=== PATIENT | male | born 1965 | race Caucasian/White ===

== ENCOUNTER 2018-01-31 19:06 | Inpatient (IN) ==
[2018-01-31] MEDS ORDERED: Aspirin 81 MG TAB.CHEW PO ONE (19:28)
--- NOTE | 2018-01-31 19:32 | Emergency Department Note ---
Disposition Clinical Impression: Shortness of breath Cellulitis Qualifiers: Site of cellulitis: extremity Site of cellulitis of extremity: lower extremity Laterality: unspecified laterality Qualified Code(s): L03.119 - Cellulitis of unspecified part of limb Chest pain Qualifiers: Chest pain type: unspecified Qualified Code(s): R07.9 - Chest pain, unspecified Disposition: Admitted As Inpatient Condition: Good Referrals: NONE,PCP [Primary Care Provider] - Forms: ED Satisfaction Letter Time of Disposition: 21:21 General Adult HPI - General Chief complaint: ED Skin/Abscess/Foreign Body Stated complaint: CP/HILDA/Cellulitis Time Seen by Provider: 01/31/18 19:16 Source: patient Mode of arrival: ambulatory Limitations: no limitations Nursing Notes Reviewed: Yes Vital Signs Reviewed: Yes - History of Present Illness HPI Narrative: Patient is a 52-year-old male that presents the emergency department with chest pain, shortness of breath and cellulitis to the lower extremities. Patient states that this has been ongoing for the past week or so. States that he was seen here in the emergency department approximately one week ago and given Keflex and Bactrim which she has been taking but this has not provided any improvement to his cellulitis. He also states that he has been having chest pain that is across his whole chest and associated shortness of breath and some lightheadedness. Patient denies any nausea, vomiting or diaphoresis. Patient states that he has had a history of cellulitis in the past specifically in his shoulder. He is unsure whether or not he has had MRSA. Patient states that both legs are red, painful and swollen. He states that this seems like they have been getting worse. Patient denies any history of DVT. Pain Scale: 8 - Related Data Home Medications Medication Instructions Recorded Confirmed Dextroamphetamine/Amphetamine 30 mg PO DAILY 01/31/18 01/31/18 [Dextroamp-Amphetamin 30 mg Tab] Previous Rx's Medication Instructions Recorded Sulfamethoxazole/Trimeth DS 1 each PO BID 7 Days tablet 08/06/15 [Bactrim DS] Cephalexin [Keflex] 500 mg PO QID #40 capsule 01/25/18 Allergies Allergy/AdvReac Type Severity Reaction Status Date / Time codeine Allergy Itching Verified 01/31/18 21:30 All systems ED: reviewed and negative except as stated. Constitutional: Denies: fever, chills Cardiovascular: Reports: chest pain Respiratory: Reports: dyspnea Gastrointestinal: Denies: nausea, vomiting Musculoskeletal: Reports: other (Bilateral lower extremity pain) Integumentary: Reports: other (Cellulitis to bilateral lower extremities ) Past Medical History - Past Medical History Medical history: Reports: other Surgical history: Reports: knee replacement, ureteral stent Psychiatric history: Reports: no psych history - Social History Smoking Status: Current every day smoker Smokeless Tobacco Status: No Alcohol use: Reports: none Drug use: Reports: none Physical Exam - General Limitations: no limitations General appearance: alert, in no apparent distress - Head Head exam: atraumatic, normocephalic - Eye Eye exam: Present: normal appearance, EOMI - Neck Neck exam: Present: normal inspection, full ROM, trachea midline - Respiratory Respiratory exam: Present: normal lung sounds bilaterally. Absent: respiratory distress, wheezes - Cardiovascular Cardiovascular exam: Present: normal rhythm, tachycardia, normal heart sounds, + S1, +S2 - Abdominal Exam Abdominal exam: Present: soft, Non-Tender, normal bowel sounds - Expanded Lower Extremity Exam Lower leg exam: Present: full ROM, tenderness, swelling, erythema Ankle exam: Present: full ROM, tenderness, swelling, erythema Foot/toe exam: Present: full ROM, tenderness, swelling, erythema Neurovascular/Tendon exam: Present: sensory deficit (decreased sensation to the feet however he states that this is chronic due to his knee replacements ). Absent: pulse deficit, motor deficit - Neurological Exam Neurological exam: Present: alert, oriented X3 - Psychiatric Psychiatric exam: Present: normal affect, normal mood - Skin Skin exam: Present: warm, dry, intact, erythema (Bilateral lower extremities appear to be cellulitic ) Course Vital Signs Temperature 98.3 F 01/31/18 19:07 Pulse Rate 108 01/31/18 19:07 Respiratory Rate 18 01/31/18 19:07 Blood Pressure 131/53 01/31/18 19:07 O2 Sat by Pulse Oximetry 95 01/31/18 19:07 Temperature 98.3 F 01/31/18 19:07 Pulse Rate 93 01/31/18 21:00 Respiratory Rate 18 01/31/18 21:00 Blood Pressure 130/77 01/31/18 21:00 O2 Sat by Pulse Oximetry 95 01/31/18 21:00 Oxygen Delivery Oxygen Delivery Room Air Medical Decision Making - [facility] Narrative Medical decision making narrative: Due to the patient having chest pain and what appears to be cellulitis obtain a CBC, BMP, troponin chest x-ray and EKG we will also obtain coags. Patient will likely need admission to the hospital for IV antibiotics due to recent outpatient failure of oral antibiotics. The patient's laboratory testing is unremarkable. However due to the patient having failed outpatient therapy and feel that is necessary for the patient to be admitted for IV antibiotics. We will start the patient on clindamycin here in the emergency department. Called and spoke with the admitting hospitalist Dr Villarreal and he has accepted the patient to their service. The patient be admitted to the hospital at this time for further evaluation and management. - Medical Records Medical records reviewed: Yes I reviewed the patient's medical records. - Lab Data Lab results reviewed: Yes I reviewed the patient's lab results. Result diagrams: 01/31/18 19:54 01/31/18 19:54 Lab Results 01/31/18 01/31/18 01/31/18 Range/Units 19:54 19:54 19:54 WBC 8.3 (4.3-11.1) K/mcL RBC 4.77 (4.19-5.50) M/mcL Hgb 13.5 (12.9-16.9) g/dL Hct 40.0 (37.5-50.1) % MCV 83.9 (83.0-100.0) fL MCH 28.3 (28.0-33.3) pg MCHC 33.8 (31.6-35.5) g/dL RDW 14.6 H (11.5-14.5) % Plt Count 365 (140-400) K/mcL MPV 8.8 L (9.4-12.4) fL Immature Gran % 1.0 (0-4) % Seg Neutrophils % 62.5 % Lymphocytes % 17.4 % Monocytes % 9.9 % Eosinophils % 7.9 % Basophils % 1.3 % Neutrophils # 5.2 (1.6-8.9) K/mcL Lymphocytes # 1.4 (0.6-4.6) K/mcL Monocytes # 0.8 (0.0-1.3) K/mcL Eosinophils # 0.7 H (0.0-0.6) K/mcL Basophils # 0.1 (0.0-0.2) K/mcL PT 11.6 (9.4-12.1) Seconds INR 1.1 APTT 29.9 (26.0-36.0) Seconds Sodium 138 (136-145) mEq/L Potassium 4.1 (3.5-5.1) mEq/L Chloride 105 (98-107) mEq/L Carbon Dioxide 28 (23-29) mEq/L BUN 13 (6-20) mg/dL Creatinine 0.88 (0.70-1.30) mg/dL Est GFR ( Amer) > 60 (> 60) Est GFR (Non-Af Amer) > 60 (> 60) BUN/Creatinine Ratio 15 (6-26) Glucose 126 H (70-105) mg/dL Calculated Osmolality 288 (280-300) Calcium 9.0 (8.6-10.3) mg/dL Troponin I < 0.03 (< 0.04) ng/mL - Radiology Data Radiology results reviewed: Yes I reviewed the patient's radiology results. Chest X-Ray 01/31/18 19:28 IMPRESSION: Pulmonary findings typical of those related to smoking, though nonspecific. Otherwise unremarkable chest without definite acute disease evident. D/ / Matt Mulligan / Matt Mulligan Interpreting Provider: Matt Mulligan - EKG Data EKG #1 EKG attestation: Yes I reviewed and interpreted this EKG. EKG results narrative: EKG shows sinus tachycardia at a rate of 105 bpm, MN interval of 152, QRS duration of 93, QTC of 388. No evidence of STEMI on EKG. Attestation Statement - Attestation Attestation: I examined this patient and my medical decision-making was reviewed with the Resident Physician, Dr. North. I agree with the documented findings, disposition and treatment plan as described except to the extent set forth below. Patient was seen and evaluated a week ago for similar symptoms had a lower extremity Doppler which was negative for DVT and has been on Bactrim and Keflex. Patient is also complaining of some mild chest tightness and shortness of breath although very anxious on arrival. After reviewing his history looks like he has had a pericardial window 2 in the past for pericardial effusion. Patient states whenever he is not feeling well he tends to get anxious and concerned about his can be a recurrent issue for him. I agree with patient's physical exam findings as documented. Patient's hemodynamically stable and in no acute distress on assessment. Patient's EKG showed sinus tachycardia without acute ST or T-wave changes. Chest x-rays unremarkable. Patient's lab evaluation shows some mild leukocytosis and rest of his labs are unremarkable. Due to patient feeling outpatient management I started IV antibiotics and obtain blood cultures. Patient will be admitted for bilateral lower cavity cellulitis despite current outpatient management. Case was discussed with hospitalist who accepted patient for admission for further evaluation and management. Patient remains hemodynamically stable in the ED at this time.
[2018-01-31 20:06] LABS: Basophils # 0.1 K/mcL (0.0-0.2); Basophils % 1.3 %; Eosinophils # 0.7 K/mcL (0.0-0.6); Eosinophils % 7.9 %; Hemoglobin 13.5 g/dL (12.9-16.9); Lymphocytes # 1.4 K/mcL (0.6-4.6); Lymphocytes % 17.4 %; Mean Corpuscular HGB Conc 33.8 g/dL (31.6-35.5); Mean Corpuscular Hemoglobin 28.3 pg (28.0-33.3); Mean Corpuscular Volume 83.9 fL (83.0-100.0); Mean Platelet Volume 8.8 fL (9.4-12.4); Monocytes # 0.8 K/mcL (0.0-1.3); Monocytes % 9.9 %; Neutrophils # 5.2 K/mcL (1.6-8.9); Platelet Count 365 K/mcL (140-400); Red Blood Count 4.77 M/mcL (4.19-5.50); Red Cell Distribution Width 14.6 % (11.5-14.5); Segmented Neutrophils % 62.5 %
[2018-01-31 20:12] LABS: INR 1.1; Prothrombin Time 11.6 Seconds (9.4-12.1)
[2018-01-31 20:14] LABS: Activated Partial Thrombo Time 29.9 Seconds (26.0-36.0)
[2018-01-31 20:29] LABS: BUN/Creatinine Ratio 15 (6-26); Blood Urea Nitrogen 13 mg/dL (6-20); Carbon Dioxide 28 mEq/L (23-29); Chloride 105 mEq/L (98-107); Glucose 126 mg/dL (70-105); Osmolality,Calculated 288 (280-300); Potassium 4.1 mEq/L (3.5-5.1); Sodium 138 mEq/L (136-145); Troponin I < 0.03 ng/mL (< 0.04); eGFR For African Americans > 60 (> 60); eGFR For Non-African Americans > 60 (> 60)
[2018-01-31] MEDS ORDERED: Clindamycin 600 MG/50 ML 600 MG/50 ML IV.SOLN IVPB ONE (20:34)
[2018-02-01] MEDS ORDERED: Naloxone 0.4 MG/ML INJ IVP PRN (03:29)
[2018-02-01] MEDS ORDERED: Acetaminophen 325 MG TABLET PO PRN (03:29)
--- NOTE | 2018-02-01 05:48 | Internal Med History&Physical ---
Date of Encounter: 02/01/18 Time of Encounter: 01:00 Internal Medicine - H&P: HPI Chief complaint: Bilateral leg swelling and pain Admitted From: Home Plans for Post Hospital Care: Home History of present illness: Mr. Peacock is a 52 year old male presents to ER for bilateral leg swelling, skin warmth/redness, and the pain for about 1 week. Past medical history is significant for narcolepsy. Patient has a history of pericardial effusion with previously windowing 2. Patient said he started to have bilateral leg swelling and pain. Patient has skin redness and warmth. He had venous Doppler test about one week ago, negative for DVT. Patient was treated as cellulitis with by mouth Bactrim and Keflex. His symptoms does not improve on by mouth medication. Patient also complaining of recent cough, chest congestion, shortness of breath, productive cough with green sputum and intermittent chest pain. Patient denies nausea, diaphoresis, fever. Patient was admitted for cellulitis. Past Med Surg Social Fam HX - Past Medical History Medical history: other Psychiatric history: no psych history - Past Surgical History Surgical History: knee replacement, ureteral stent - Social History Smoking Status: Current every day smoker Smokeless Tobacco Status: No Alcohol use: none Drug use: none - Family History Mother History Unknown: Yes Internal Medicine - H&P: Meds Sulfamethoxazole/Trimeth DS [Bactrim DS] 1 each PO BID 7 Days tablet 08/06/15 [ Rx] Cephalexin [Keflex] 500 mg PO QID #40 capsule 01/25/18 [Rx] Dextroamphetamine/Amphetamine [Dextroamp-Amphetamin 30 mg Tab] 30 mg PO DAILY [History] 3 Allergy/AdvReac Type Severity Reaction Status Date / Time codeine Allergy Itching Verified 01/31/18 21:30 All Systems PM: A 10-system review of systems was performed and is negative for pertinent findings except as documented above in the HPI. - Constitutional Vitals: Temp Pulse Resp BP Pulse Ox 97.8 F 89 16 117/78 94 02/01/18 03:15 02/01/18 03:15 02/01/18 03:15 02/01/18 03:15 02/01/18 03:15 General appearance: Present: A&O X 3, no acute distress, answers questions appropriately - Head Head exam: Present: atraumatic, normocephalic - Eye Eye exam: Present: PERRL, conjuntiva pink, sclera anicteric Pupils: Present: PERRL - Neck Neck exam general surgery: Present: supple, trachea midline. Absent: lymphadenopathy - Respiratory Respiratory exam: Present: chest wall tenderness (On mid- right chest wall), CTAB. Absent: accessory muscle use, rales, rhonchi, wheezes Additional comments: coarse breath sounds bilaterally - Cardiovascular Cardiovascular exam: Present: RRR, +S1, +S2. Absent: diastolic murmur, gallop, rubs, systolic murmur - GI/Abdominal GI/Abdominal exam: Present: normal bowel sounds, soft, no peritoneal signs. Absent: distended, tenderness - Extremities Exam Extremities exam: Present: warm, radial pulses palpable and symmetrical. Absent : calf tenderness, cyanotic, pedal edema - Neurological Exam Neurological exam: Present: CN II-XII intact, oriented X3, no focal deficits. Absent: pronater drift, facial droop, speech deficit - Skin Skin exam: Present: dry, intact Internal Med - H&P Results - Labs CBC & Chem 7: 01/31/18 19:54 01/31/18 19:54 - EKG Data -: EKG Interpreted by Myself EKG shows normal: sinus rhythm Rate: tachycardia - Assessment and plan (1) DVT prophylaxis Current Visit: Yes Status: Acute Assessment and plan: Heparin subcutaneously (2) Acute bronchitis Current Visit: Yes Status: Acute Assessment and plan: Patient has recent onset productive cough, chest x-ray unremarkable. Consider acute bronchitis - Treat patient with cough syrup. - Symptomatic treatment as needed Qualifiers: Bronchitis organism: unspecified organism Qualified Code(s): J20.9 - Acute bronchitis, unspecified (3) Cellulitis Current Visit: Yes Status: Acute Assessment and plan: Patient has bilateral leg swelling, Rt>Lt, with skin redness and warmth. Consider cellulitis. Failed outpatient by mouth antibiotic treatment. - Place patient on IV clindamycin - Follow up blood culture results Qualifiers: Site of cellulitis: extremity Site of cellulitis of extremity: lower extremity Laterality: unspecified laterality Qualified Code(s): L03.119 - Cellulitis of unspecified part of limb (4) Chest pain Current Visit: Yes Status: Acute Assessment and plan: Patient complaint intermittent chest pain with cough. There is chest wall tenderness. Most likely skeletal muscular pain. Patient has history of pericardial effusion. Needs to rule out ACS or pericarditis - Continuous cardiac monitoring - Track 3 sets of troponin - Echocardiogram Qualifiers: Chest pain type: intercostal pain Qualified Code(s): R07.82 - Intercostal pain (5) Shortness of breath Current Visit: Yes Status: Acute Assessment and plan: Most likely due to acute bronchitis. However, patient has history of pericardial effusion, will repeat echo. (6) Leg edema, right Current Visit: No Status: Acute Assessment and plan: Patient has a bilateral leg edema, right > left. Although one week ago Doppler shows negative for DVT, will repeat a Doppler venous as uneven swelling highly suspect DVT. - Time Spent With Patient Total time spent is greater than 50% in coordination of care (as documented) at patient's floor/unit and/or counseling patient: 40 minutes Greater than 35 minutes
[2018-02-01] MEDS: *HR* Heparin 5,000 UNIT/ML VIAL SQ SCH ×2 (06:12→18:18)
[2018-02-01 06:35] LABS: Basophils # 0.1 K/mcL (0.0-0.2); Basophils % 1.2 %; Eosinophils # 0.7 K/mcL (0.0-0.6); Eosinophils % 10.4 %; Hematocrit 40.6 % (37.5-50.1); Hemoglobin 13.4 g/dL (12.9-16.9); Immature Granulocytes % 1.1 % (0-4); Lymphocytes # 1.3 K/mcL (0.6-4.6); Lymphocytes % 19.9 %; Mean Corpuscular Hemoglobin 28.5 pg (28.0-33.3); Mean Corpuscular Volume 86.4 fL (83.0-100.0); Mean Platelet Volume 9.1 fL (9.4-12.4); Monocytes # 0.8 K/mcL (0.0-1.3); Monocytes % 11.5 %; Neutrophils # 3.7 K/mcL (1.6-8.9); Platelet Count 371 K/mcL (140-400); Red Cell Distribution Width 14.6 % (11.5-14.5); Segmented Neutrophils % 55.9 %
[2018-02-01 07:18] LABS: BUN/Creatinine Ratio 15 (6-26); Blood Urea Nitrogen 13 mg/dL (6-20); Calcium 8.6 mg/dL (8.6-10.3); Carbon Dioxide 26 mEq/L (23-29); Chloride 105 mEq/L (98-107); Glucose 100 mg/dL (70-105); Magnesium 2.2 mg/dL (1.6-2.6); Osmolality,Calculated 282 (280-300); Potassium 4.7 mEq/L (3.5-5.1); Sodium 136 mEq/L (136-145); Troponin I < 0.03 ng/mL (< 0.04); eGFR For African Americans > 60 (> 60); eGFR For Non-African Americans > 60 (> 60)
[2018-02-01] MEDS: Lactobacillus 1 EACH CAP.SPRINK PO SCH (09:48)
[2018-02-01] MEDS: Clindamycin 600 MG/50 ML 600 MG/50 ML IV.SOLN IVPB SCH ×3 (09:49→23:37)
[2018-02-01] MEDS: *HR* HYDROcodone/Acet 5/325 mg TABLET PO PRN ×2 (11:10→18:16)
[2018-02-01] MEDS: Furosemide 40 MG/4 ML VIAL IVP SCH (13:32)
[2018-02-01] MEDS: AMPHETAMINE PO SCH (13:34)
[2018-02-01] MEDS: DEXTROAMPHETAMINE PO SCH (13:34)
--- NOTE | 2018-02-01 23:34 | Event Note ---
Date of Encounter: 02/01/18 Time of Encounter: 18:47 S: Patient had no acute events overnight. He states that pain is well- controlled after getting norco. He states edema in BLE is improved. He denies chest pain, SOB, abdominal pain, nausea, vomiting, fever, or chills. He has no complaints. O: Physical Exam: Gen - Awake, alert, well-nourished, no acute distress HEENT - NCAT, PERRLA, EOMI, hearing grossly intact, oropharynx benign CV - RRR, normal S1 and S2, no M/R/G, 1+ BLE edema Resp - Normal WOB, CTAB, no W/R/R GI - Soft, NT/ND, no masses, normal bowel sounds, no HSP Skin - Warm, dry, erythema and edema of BLE with mild TTP Psych - Normal mood and affect, no depression or anxiety A/P: 1) BLE Cellulitis - Doppler without DVT. ECHO unremarkable. Continue IV clindamycin, IV lasix, and pain control with tylenol and norco PRN. Will likely need at least 2-3 days of IV antibiotics due to failing outpatient PO antibiotics.
[2018-02-02] MEDS: *HR* Heparin 5,000 UNIT/ML VIAL SQ SCH ×2 (05:22→17:46)
[2018-02-02] MEDS: Clindamycin 600 MG/50 ML 600 MG/50 ML IV.SOLN IVPB SCH ×2 (09:10→17:45)
[2018-02-02] MEDS: Furosemide 40 MG/4 ML VIAL IVP SCH (09:11)
[2018-02-02] MEDS: *HR* HYDROcodone/Acet 5/325 mg TABLET PO PRN (09:11)
[2018-02-02] MEDS: Lactobacillus 1 EACH CAP.SPRINK PO SCH (09:11)
--- NOTE | 2018-02-02 23:02 | Internal Med Progress Note ---
Date of Encounter: 02/02/18 Time of Encounter: 15:20 - Assessment and plan (1) Cellulitis Current Visit: Yes Status: Acute Assessment and plan: Improving. Failed outpatient PO antibiotic treatment. Continue IV clindamycin. Will likely need 1-2 more days of IV antibiotics given outpatient failure. Continue IV lasix for BLE edema. Blood cultures no growth preliminary x 2. Qualifiers: Site of cellulitis: extremity Site of cellulitis of extremity: lower extremity Laterality: unspecified laterality Qualified Code(s): L03.119 - Cellulitis of unspecified part of limb (2) Chest pain Current Visit: Yes Status: Resolved Assessment and plan: Was most likely skeletal muscular pain. No further episodes. Troponin trended negative x 3. ECHO with LVEF 60%, normal LV size and function, moderate LV diastolic dysfunction, and no valvular dysfunction. Continue telemetry. Qualifiers: Chest pain type: intercostal pain Qualified Code(s): R07.82 - Intercostal pain (3) Shortness of breath Current Visit: Yes Status: Resolved Assessment and plan: Resolved. (4) Acute diastolic (congestive) heart failure Current Visit: Yes Status: Acute Assessment and plan: Improving. Continue IV lasix. Will defer starting ROMAN and BB for now due to hypotension. Will need close outpatient follow up. (5) DVT prophylaxis Current Visit: Yes Status: Acute - Time Spent With Patient Total time spent is greater than 50% in coordination of care (as documented) at patient's floor/unit and/or counseling patient: less than 15 minutes - Subjective Interval history: Patient had no acute events overnight. He states that he is doing "good" this afternoon. He denies pain. Swelling in legs is much improve. He states that he is urinating "a lot." He denies chest pain, SOB, fever, chills, nausea, or vomiting. He has no complaints. - Constitutional Vitals: Temp Pulse Resp BP Pulse Ox 98.2 F 90 17 111/72 98 02/02/18 21:22 02/02/18 21:22 02/02/18 21:22 02/02/18 21:22 02/02/18 21:22 General appearance: Present: cooperative, A&O X 3, pleasant, no acute distress, answers questions appropriately - Respiratory Respiratory exam: Present: CTAB. Absent: accessory muscle use, rales, rhonchi, wheezes Additional comments: Normal WOB - Cardiovascular Cardiovascular exam: Present: RRR, +S1, +S2. Absent: diastolic murmur, gallop, rubs, systolic murmur Additional comments: Trace BLE edema - GI/Abdominal GI/Abdominal exam: Present: normal bowel sounds, soft. Absent: distended, hepatomegaly, mass, splenomegaly, tenderness - Psychiatric Psychiatric exam: Present: normal affect, normal mood. Absent: agitated, anxious, depressed - Skin Skin exam: Present: dry, intact. Absent: cyanosis, rash Additional comments: Mild erythema of BLE, trace BLE edema, mild TTP Internal Medicine: Result - Labs CBC & Chem 7: 02/01/18 05:35 02/01/18 05:35 - ABG Interpretation ABG results: PT/INR, D-dimer PT 11.6 Seconds (9.4-12.1) 01/31/18 19:54 Consult Discharge Plan - Plan Referrals: NONE,PCP [Primary Care Provider] -
[2018-02-03] MEDS: Clindamycin 600 MG/50 ML 600 MG/50 ML IV.SOLN IVPB SCH ×3 (00:56→09:00)
[2018-02-03] MEDS: *HR* HYDROcodone/Acet 5/325 mg TABLET PO PRN ×2 (01:06→09:01)
[2018-02-03 05:17] LABS: Basophils # 0.1 K/mcL (0.0-0.2); Basophils % 1.1 %; Eosinophils # 0.4 K/mcL (0.0-0.6); Eosinophils % 4.7 %; Hematocrit 43.3 % (37.5-50.1); Hemoglobin 14.3 g/dL (12.9-16.9); Immature Granulocytes % 0.7 % (0-4); Lymphocytes # 1.7 K/mcL (0.6-4.6); Lymphocytes % 19.1 %; Mean Corpuscular Volume 84.7 fL (83.0-100.0); Mean Platelet Volume 9.1 fL (9.4-12.4); Monocytes # 0.9 K/mcL (0.0-1.3); Neutrophils # 5.7 K/mcL (1.6-8.9); Platelet Count 403 K/mcL (140-400); Red Blood Count 5.11 M/mcL (4.19-5.50); Red Cell Distribution Width 14.5 % (11.5-14.5); Segmented Neutrophils % 64.4 %
[2018-02-03 05:33] LABS: BUN/Creatinine Ratio 18 (6-26); Blood Urea Nitrogen 13 mg/dL (6-20); Calcium 9.1 mg/dL (8.6-10.3); Carbon Dioxide 26 mEq/L (23-29); Chloride 104 mEq/L (98-107); Glucose 106 mg/dL (70-105); Osmolality,Calculated 287 (280-300); Sodium 138 mEq/L (136-145); eGFR For African Americans > 60 (> 60); eGFR For Non-African Americans > 60 (> 60)
[2018-02-03] MEDS: *HR* Heparin 5,000 UNIT/ML VIAL SQ SCH (05:57)
[2018-02-03] MEDS: DEXTROAMPHETAMINE PO SCH ×2 (08:56→09:02)
[2018-02-03] MEDS: AMPHETAMINE PO SCH ×2 (08:56→09:02)
[2018-02-03] MEDS: Lactobacillus 1 EACH CAP.SPRINK PO SCH (09:01)
[2018-02-03] MEDS: Furosemide 40 MG/4 ML VIAL IVP SCH (09:02)
[2018-02-03 16:00] VITALS: BP 109/71
--- NOTE | 2018-02-03 16:37 | Discharge Summary ---
- NOTES TO OUTPATIENT PROVIDER Notes to Outpatient Provider: Follow up with new PCP in 2-3 days after discharge. Recheck CBC at that time. Date of Encounter: 02/03/18 Time of Encounter: 16:35 - Discharge Diagnosis (1) Cellulitis Priority: Primary Status: Acute Qualifiers: Site of cellulitis: extremity Site of cellulitis of extremity: lower extremity Laterality: unspecified laterality Qualified Code(s): L03.119 - Cellulitis of unspecified part of limb (2) Chest pain Priority: Secondary Status: Resolved Qualifiers: Chest pain type: intercostal pain Qualified Code(s): R07.82 - Intercostal pain (3) Shortness of breath Priority: Secondary Status: Resolved (4) Acute diastolic (congestive) heart failure Priority: Secondary Status: Acute (5) DVT prophylaxis Priority: Secondary Status: Acute Hospital course: Mr. Peacock is a 52 year old white male admitted for BLE cellulitis, chest pain, and SOB. Patient was admitted to general medical floor with telemetry. Cardiac enzymes trended negative x 3. He was started on IV clindamycin and IV lasix. Erythema and edema of BLE improved greatly the day after admission. Chest pain and SOB resolved with diuresis. He was given an extra day of IV antibiotics because he failed outpatient PO antibiotics. ECHO was obtained and showed LVEF 60%, normal LV size and function, moderate LV diastolic dysfunction , and no valvular dysfunction. He states that he is pain free and doing well today. He wants to go home. He will follow up with new PCP in 2-3 days after discharge. He will be discharged home with 7 more days of clindamycin 450 mg PO Q8H. Patient has met maximum benefit of this hospitalization and will be discharged home in stable condition. Discharge discussed with: patient, family, nurse, other (Pharmacist) - Time Spent with Patient Total time spent providing and/or coordinating discharge services: Greater than 30 minutes - Discharge Medications Prescriptions: Clindamycin HCl [Cleocin HCl] 450 mg PO Q8H 7 Days #63 capsule Home Medications: Dextroamphetamine/Amphetamine [Dextroamp-Amphetamin 30 mg Tab] 30 mg PO DAILY [History] Clindamycin HCl [Cleocin HCl] 450 mg PO Q8H 7 Days #63 capsule 02/03/18 [Rx] Allergies/Adverse Reactions: 3 Allergy/AdvReac Type Severity Reaction Status Date / Time codeine Allergy Itching Verified 01/31/18 21:30 Date of admission: 02/01/18 03:29 Primary care physician: PCP NONE Discharging clinician: Kendall Dennison Anticipated date of discharge: 02/03/18 - Constitutional Vitals: Temp Pulse Resp BP Pulse Ox 97.5 F L 87 15 109/71 96 02/03/18 15:55 02/03/18 15:55 02/03/18 15:55 02/03/18 15:55 02/03/18 15:55 General appearance: Present: cooperative, A&O X 3, pleasant, no acute distress, answers questions appropriately - Respiratory Respiratory exam: Present: CTAB. Absent: accessory muscle use, rales, rhonchi, wheezes Additional comments: Normal WOB - Cardiovascular Cardiovascular exam: Present: RRR, +S1, +S2. Absent: diastolic murmur, gallop, rubs, systolic murmur Additional comments: No BLE edema - GI/Abdominal GI/Abdominal exam: Present: normal bowel sounds, soft. Absent: distended, hepatomegaly, mass, splenomegaly, tenderness - Extremities Exam Additional comments: BLE with minimal erythema, no edema, no warmth, no TTP - Psychiatric Psychiatric exam: Present: normal affect, normal mood. Absent: agitated, anxious, depressed - Skin Skin exam: Present: dry, intact, warm. Absent: cyanosis, rash - Patient Status Disposition: Home, Self-Care Condition: Good Functional capacity at discharge: independent ambulation Overall status at discharge: patient is progressing back to baseline - Discharge Instructions Instructions: Heart Failure (DC), Cellulitis (DC) Follow Up With: [facility] [Outside] (Office Will call you with a hospital follow up appointment. If you do not hear from them by Tuesday please call the above number for your appointment date and time) Additional Instructions: Follow up with new PCP in 2-3 days after discharge. Recheck CBC at that time. - Diet and Activity Activity: resume usual activities as tolerated Diet: regular diet
--- NOTE | 2018-02-03 19:08 | Electrocardiograph Report ---
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
== END 2018-02-03 16:48 | disposition home or self-care (01) | DRG 383 ==
LOC: EMEROO 19:06 → 2ANU 19:06
PROVIDERS: ADMIT Internal Medicine; ATTEND Internal Medicine

== ENCOUNTER 2018-07-05 10:41 | Observation (INO) ==
[2018-07-05] MEDS ORDERED: Furosemide 40 MG/4 ML VIAL IVP ONE (11:17)
--- NOTE | 2018-07-05 11:20 | Emergency Department Note ---
Disposition Clinical Impression: Diastolic heart failure Qualifiers: Heart failure chronicity: unspecified Qualified Code(s): I50.30 - Unspecified diastolic (congestive) heart failure Disposition: Admitted As Inpatient Condition: Fair Time of Disposition: 16:56 Extremity Problem HPI - General Chief complaint: ED Extremity Injury, Lower Stated complaint: Bi-lateral leg swelling Time Seen by Provider: 07/05/18 11:13 Source: patient, family Mode of arrival: ambulatory Limitations: no limitations Nursing Notes Reviewed: Yes Vital Signs Reviewed: Yes - History of Present Illness Pt Subjective Complaint: extremity pain Onset (ago): day(s) Consistency: constant Injury Location: left, right, lower extremity Pain Scale: 7 Quality: aching Radiation: distal Improves with: other (lasix) Worsens with: weight bearing, walking Associated symptoms: Reports: shortness of breath - Related Data Home Medications Medication Instructions Recorded Confirmed Dextroamphetamine/Amphetamine 20 mg PO DAILY 07/05/18 07/05/18 [Adderall 20 mg Tablet] Furosemide Oral Soln [Lasix] 40 mg PO BID 07/05/18 07/05/18 Methadone Oral Concentrate 90 mg PO DAILY 07/05/18 07/05/18 [Methadone] Allergies Allergy/AdvReac Type Severity Reaction Status Date / Time codeine Allergy Itching Verified 07/05/18 11:07 All systems ED: reviewed and negative except as stated. Constitutional: Reports: weight change (Unintentional water weight gain) Eyes: Reports: as per HPI ENT ED: Reports: as per HPI Cardiovascular: Reports: edema Respiratory: Reports: dyspnea Gastrointestinal: Reports: as per HPI Genitourinary: Reports: as per HPI Musculoskeletal: Reports: other (Bilateral lower extremity pain) Integumentary: Reports: other (Erythema to bilateral legs) Neurological: Reports: as per HPI Psychiatric: Reports: as per HPI Endocrine: Reports: as per HPI Hematological/Lymphatic: Reports: as per HPI Allergic/Immunologic: Reports: as per HPI Past Medical History - Past Medical History Source: patient Medical history: Reports: other Surgical history: Reports: knee replacement, ureteral stent Psychiatric history: Reports: no psych history - Social History Smoking Status: Current every day smoker Smokeless Tobacco Status: No Alcohol use: Reports: none Drug use: Reports: none Physical Exam - General Limitations: no limitations General appearance: alert - Head Head exam: atraumatic - Eye Eye exam: Present: normal appearance - ENT ENT exam: normal exam - Neck Neck exam: Present: normal inspection, full ROM - Chest Chest inspection: Present: normal inspection, symmetric chest wall rise - Respiratory Respiratory exam: Present: normal lung sounds bilaterally - Cardiovascular Cardiovascular exam: Present: normal rhythm, tachycardia, normal heart sounds - Abdominal Exam Abdominal exam: Present: soft, Non-Tender - Rectal Exam Rectal exam: Present: deferred - Extremities Exam Extremities exam: Present: pedal edema - Neurological Exam Neurological exam: Present: alert, oriented X3, CN II-XII intact - Psychiatric Psychiatric exam: Present: normal affect, normal mood - Skin Skin exam: Present: warm, dry, other (mild circumferential erythema to bilateral LE) Course Course Narrative: Patient presents with peripheral edema, dyspnea, unintentional water weight gain. I did review the transcribed report of his most recent echocardiogram dated January 2018 which shows he has moderate diastolic failure. I will evaluate the patient with an EKG, chest x-ray, labs and provide a dose of Lasix and reassess. I anticipate he will require admission for diuresis Vital Signs Temperature 98.5 F 07/05/18 11:05 Pulse Rate 100 07/05/18 11:05 Respiratory Rate 18 07/05/18 11:05 Blood Pressure 126/83 07/05/18 11:05 O2 Sat by Pulse Oximetry 94 07/05/18 11:05 Temperature 98.5 F 07/05/18 11:15 Pulse Rate 100 07/05/18 11:15 Respiratory Rate 16 07/05/18 14:11 Blood Pressure 107/67 07/05/18 14:11 O2 Sat by Pulse Oximetry 94 07/05/18 11:15 Oxygen Delivery Oxygen Delivery Room Air Extremity Problem, Nontraumati - Medical Records Medical records reviewed: Yes I reviewed the patient's medical records. - Lab Data Lab results reviewed: Yes I reviewed the patient's lab results. Result diagrams: 07/05/18 11:16 07/05/18 11:16 Lab Results 07/05/18 07/05/18 07/05/18 Range/Units 11:16 11:16 11:16 WBC 11.8 H (4.3-11.1) K/mcL RBC 4.84 (4.19-5.50) M/mcL Hgb 13.5 (12.9-16.9) g/dL Hct 41.9 (37.5-50.1) % MCV 86.6 (83.0-100.0) fL MCH 27.9 L (28.0-33.3) pg MCHC 32.2 (31.6-35.5) g/dL RDW 14.6 H (11.5-14.5) % Plt Count 297 (140-400) K/mcL MPV 8.8 L (9.4-12.4) fL Immature Gran % 1.1 (0-4) % Seg Neutrophils % 61.9 % Lymphocytes % 20.1 % Monocytes % 10.3 % Eosinophils % 5.9 % Basophils % 0.7 % Neutrophils # 7.3 (1.6-8.9) K/mcL Lymphocytes # 2.4 (0.6-4.6) K/mcL Monocytes # 1.2 (0.0-1.3) K/mcL Eosinophils # 0.7 H (0.0-0.6) K/mcL Basophils # 0.1 (0.0-0.2) K/mcL PT 12.2 H (9.4-12.1) Seconds INR 1.1 Sodium 136 (136-145) mEq/L Potassium 4.3 (3.5-5.1) mEq/L Chloride 102 (98-107) mEq/L Carbon Dioxide 29 (23-29) mEq/L BUN 13 (6-20) mg/dL Creatinine 0.82 (0.70-1.30) mg/dL Est GFR ( Amer) > 60 (> 60) Est GFR (Non-Af Amer) > 60 (> 60) BUN/Creatinine Ratio 16 (6-26) Glucose 102 (70-105) mg/dL Calculated Osmolality 282 (280-300) Calcium 9.4 (8.6-10.3) mg/dL Magnesium 2.0 (1.6-2.6) mg/dL Total Bilirubin 0.5 (0.3-1.0) mg/dL AST 50 H (13-39) Units/L ALT 59 H (7-52) Units/L Alkaline Phosphatase 121 H (34-104) Units/L Troponin I < 0.03 (< 0.04) ng/mL B-Natriuretic Peptide (Less than 100) pg/mL Serum Total Protein 8.2 (6.4-8.9) g/dL Albumin 3.9 (3.5-5.7) g/dL Globulin 4.3 H (2.4-3.5) g/dL Albumin/Globulin Ratio 0.9 L (1.1-2.2) 07/05/18 Range/Units 11:26 WBC (4.3-11.1) K/mcL RBC (4.19-5.50) M/mcL Hgb (12.9-16.9) g/dL Hct (37.5-50.1) % MCV (83.0-100.0) fL MCH (28.0-33.3) pg MCHC (31.6-35.5) g/dL RDW (11.5-14.5) % Plt Count (140-400) K/mcL MPV (9.4-12.4) fL Immature Gran % (0-4) % Seg Neutrophils % % Lymphocytes % % Monocytes % % Eosinophils % % Basophils % % Neutrophils # (1.6-8.9) K/mcL Lymphocytes # (0.6-4.6) K/mcL Monocytes # (0.0-1.3) K/mcL Eosinophils # (0.0-0.6) K/mcL Basophils # (0.0-0.2) K/mcL PT (9.4-12.1) Seconds INR Sodium (136-145) mEq/L Potassium (3.5-5.1) mEq/L Chloride (98-107) mEq/L Carbon Dioxide (23-29) mEq/L BUN (6-20) mg/dL Creatinine (0.70-1.30) mg/dL Est GFR ( Amer) (> 60) Est GFR (Non-Af Amer) (> 60) BUN/Creatinine Ratio (6-26) Glucose (70-105) mg/dL Calculated Osmolality (280-300) Calcium (8.6-10.3) mg/dL Magnesium (1.6-2.6) mg/dL Total Bilirubin (0.3-1.0) mg/dL AST (13-39) Units/L ALT (7-52) Units/L Alkaline Phosphatase (34-104) Units/L Troponin I (< 0.04) ng/mL B-Natriuretic Peptide 35 (Less than 100) pg/mL Serum Total Protein (6.4-8.9) g/dL Albumin (3.5-5.7) g/dL Globulin (2.4-3.5) g/dL Albumin/Globulin Ratio (1.1-2.2) - Radiology Data Radiology results reviewed: Yes I reviewed the patient's radiology results. - EKG Data EKG attestation: Yes I reviewed and interpreted this EKG. EKG results narrative: Sinus tachycardia left atrial enlargement right bundle branch block left posterior fascicular block rate 104 P-R 154 QRS 128 QT/QTC 359/473. No studies available at the time of the patient's initial evaluation for comparison.
[2018-07-05 11:46] LABS: Basophils # 0.1 K/mcL (0.0-0.2); Basophils % 0.7 %; Eosinophils # 0.7 K/mcL (0.0-0.6); Eosinophils % 5.9 %; Hematocrit 41.9 % (37.5-50.1); Hemoglobin 13.5 g/dL (12.9-16.9); Immature Granulocytes % 1.1 % (0-4); Lymphocytes # 2.4 K/mcL (0.6-4.6); Lymphocytes % 20.1 %; Mean Corpuscular HGB Conc 32.2 g/dL (31.6-35.5); Mean Corpuscular Hemoglobin 27.9 pg (28.0-33.3); Mean Corpuscular Volume 86.6 fL (83.0-100.0); Mean Platelet Volume 8.8 fL (9.4-12.4); Monocytes # 1.2 K/mcL (0.0-1.3); Monocytes % 10.3 %; Neutrophils # 7.3 K/mcL (1.6-8.9); Platelet Count 297 K/mcL (140-400); Red Blood Count 4.84 M/mcL (4.19-5.50); Red Cell Distribution Width 14.6 % (11.5-14.5); Segmented Neutrophils % 61.9 %
[2018-07-05 11:54] LABS: INR 1.1; Prothrombin Time 12.2 Seconds (9.4-12.1)
[2018-07-05 12:07] LABS: Troponin I < 0.03 ng/mL (< 0.04)
[2018-07-05 12:08] LABS: Alanine Aminotransferase 59 Units/L (7-52); Albumin 3.9 g/dL (3.5-5.7); Albumin/Globulin Ratio 0.9 (1.1-2.2); Alkaline Phosphatase 121 Units/L (34-104); Aspartate Amino Transferase 50 Units/L (13-39); BUN/Creatinine Ratio 16 (6-26); Bilirubin,Total 0.5 mg/dL (0.3-1.0); Blood Urea Nitrogen 13 mg/dL (6-20); Calcium 9.4 mg/dL (8.6-10.3); Carbon Dioxide 29 mEq/L (23-29); Chloride 102 mEq/L (98-107); Globulin 4.3 g/dL (2.4-3.5); Glucose 102 mg/dL (70-105); Osmolality,Calculated 282 (280-300); Potassium 4.3 mEq/L (3.5-5.1); Sodium 136 mEq/L (136-145); Total Protein 8.2 g/dL (6.4-8.9); eGFR For Non-African Americans > 60 (> 60)
[2018-07-05] MEDS ORDERED: Naloxone 0.4 MG/ML INJ IVP PRN (13:36)
--- NOTE | 2018-07-05 14:12 | Internal Med History&Physical ---
Date of Encounter: 07/05/18 Time of Encounter: 13:30 Internal Medicine - H&P: HPI Chief complaint: LE swelling, weight gain Admitted From: Home History of present illness: Mr. Peacock is a 53 year old male with past history of heart failure with preserved EF, obesity, and tobacco abuse presented to the ED with one-week history of worsening leg swelling and weight gain. He was recently seen in the ED on 06/26 for a similar complaint and was given a prescription for Lasix solution 40 mg daily. However, he was not able to tolerate PO lasix and stopped taking for the last few days. He also does admit to drinking a lot of water at home. States that he normally weighs ~ 100kg (currently measuring 113kg). Both legs are swollen and he is worried that they are turning slightly red for the last couple days. He gets short of breath on exertion but not at rest. Denies any chest pain, orthopnea, or PND. No fever/chills, nausea/vomiting, abdominal pain, change in bowel habits, dysuria, or urinary frequency. Has any joint pain or rash. In the ED, he was afebrile and hemodynamically stable. He was saturating 94% on room air. Labs showed mild leukocytosis of 11.8 but otherwise unremarkable BMP, troponin, or BNP. AST/ALT were slightly elevated in the 50s. EKG shows normal sinus rhythm with ventricular rate of [address] changes concerning for ischemia. He was given a dose of IV Lasix 40 mg and admitted for further management. Past Med Surg Social Fam HX - Past Medical History Medical history: other Additional medical history: Narcolepsy. Psychiatric history: no psych history - Past Surgical History Surgical History: knee replacement, ureteral stent Additional surgical history: pericardial window x 2 - Social History Smoking Status: Current every day smoker Packs per day: 0.25 Smokeless Tobacco Status: No Alcohol use: none Drug use: none - Family History Mother History Unknown: Yes Father History Unknown: Yes Internal Medicine - H&P: Meds Dextroamphetamine/Amphetamine [Adderall 20 mg Tablet] 20 mg PO DAILY 07/05/18 [ History] Furosemide Oral Soln [Lasix] 40 mg PO BID 07/05/18 [History] Methadone Oral Concentrate [Methadone] 90 mg PO DAILY 07/05/18 [History] 3 Allergy/AdvReac Type Severity Reaction Status Date / Time codeine Allergy Itching Verified 07/05/18 11:07 All Systems PM: A 10-system review of systems was performed and is negative for pertinent findings except as documented above in the HPI. - Constitutional Vitals: Temp Pulse Resp BP Pulse Ox 98.5 F 100 18 126/83 94 07/05/18 11:15 07/05/18 11:15 07/05/18 11:15 07/05/18 11:15 07/05/18 11:15 Exam: General: Alert and oriented, not in acute distress. HEENT:EOMI, pupils equal, round and reactive. Cardiovascular:Normal S1 & S2, No JVD. Pulse regular. Lungs: clear to auscultation, no wheezes/rales Abdomen:Soft, non-tender, no rigidity. Extremities: Bilateral LE swelling upto knees, skin changes consistent with chronic venous stasis. Slightly warm to touch but nontender, no fluctuance/ localized swelling. Neurological:Normal cognition and motor skills. Non-focal Skin:Normal color, no rash, no lesions. Pulses:Carotid and radial pulses normal +2. Rest of the physical exam is non contributory Internal Med - H&P Results - Labs CBC & Chem 7: 07/05/18 11:16 07/05/18 11:16 - Assessment and plan (1) Acute diastolic (congestive) heart failure Current Visit: No Status: Acute Assessment and plan: Presented with dyspnea on exertion, bilateral leg swelling, and weight gain. BNP 35 which can be falsely low in the setting of obesity CXR did not show any significant pulmonary vascular congestion. However, patient reports symptomatic improvement after IV Lasix received in the ED Prior echo January 2018 was reviewed. Normal EF with moderate diastolic dysfunction. Will repeat Limited echo IV Lasix 40 mg twice a day, reports intolerance to PO lasix -> will consider PO bumex Daily weights, strict I/O Part of the swelling is likely to be attribute it to chronic venous insufficiency as well. ADvise to elevate legs as much as possible and wear compression stockings (2) Chronic venous stasis Current Visit: Yes Status: Acute Assessment and plan: As above, despite leukocytosis, no signs of cellulitis (3) Leukocytosis Current Visit: Yes Status: Acute Assessment and plan: Mild leukocytosis but no evidence of cellulitis in the lower leg (Rather consistent with chronic venous stasis) alexisiyot Qualifiers: Leukocytosis type: unspecified Qualified Code(s): D72.829 - Elevated white blood cell count, unspecified (4) Transaminitis Current Visit: Yes Status: Acute Assessment and plan: Suspect secondary to fatty liver versus congestive hepatopathy Denies any history of significant alcohol use Monitor on diuresis, if worsens will consider further imaging (5) Tobacco abuse Current Visit: Yes Status: Chronic Assessment and plan: Counseling for smoking cessation given Nicotine replacement therapy (6) DVT prophylaxis Current Visit: Yes Status: Acute Assessment and plan: EPCD - Time Spent With Patient Total time spent is greater than 50% in coordination of care (as documented) at patient's floor/unit and/or counseling patient:
[2018-07-05] MEDS: Furosemide 40 MG/4 ML VIAL IVP SCH (17:50)
[2018-07-06 06:28] LABS: Hematocrit 41.9 % (37.5-50.1); Hemoglobin 13.4 g/dL (12.9-16.9); Mean Corpuscular Hemoglobin 27.7 pg (28.0-33.3); Mean Corpuscular Volume 86.7 fL (83.0-100.0); Platelet Count 293 K/mcL (140-400); Red Blood Count 4.83 M/mcL (4.19-5.50); Red Cell Distribution Width 14.6 % (11.5-14.5)
[2018-07-06 07:00] LABS: Alanine Aminotransferase 58 Units/L (7-52); Albumin 3.7 g/dL (3.5-5.7); Albumin/Globulin Ratio 0.9 (1.1-2.2); Alkaline Phosphatase 128 Units/L (34-104); Aspartate Amino Transferase 46 Units/L (13-39); BUN/Creatinine Ratio 22 (6-26); Bilirubin,Total 0.5 mg/dL (0.3-1.0); Blood Urea Nitrogen 18 mg/dL (6-20); Calcium 9.3 mg/dL (8.6-10.3); Carbon Dioxide 30 mEq/L (23-29); Chloride 96 mEq/L (98-107); Glucose 96 mg/dL (70-105); Magnesium 2.1 mg/dL (1.6-2.6); Osmolality,Calculated 278 (280-300); Potassium 4.2 mEq/L (3.5-5.1); Sodium 133 mEq/L (136-145); Total Protein 7.7 g/dL (6.4-8.9); eGFR For Non-African Americans > 60 (> 60)
[2018-07-06 07:13] VITALS: BP 143/89
[2018-07-06] MEDS ORDERED: Methadone Oral Concentrate 10 MG/ML PO SCH (09:00)
[2018-07-06] MEDS ORDERED: (Dextroamphetamine/Amphetamine [Adderall 20 Mg Tablet) PO SCH (09:00)
[2018-07-06] MEDS: Furosemide 40 MG/4 ML VIAL IVP SCH (09:14)
--- NOTE | 2018-07-06 09:40 | Discharge Summary ---
- NOTES TO OUTPATIENT PROVIDER Notes to Outpatient Provider: Patient with known diastolic heart failure presented to the ED with LE swelling, likely due to a combination of mild diastolic heart failure and chronic venous insufficiency. He states that he was intolerant to oral Lasix. Diuresed well with IV lasix 40mg BID with symptomatic relief. Limited echo did not show any significant changes since 2017. Will be discharged home on PO bumex 1mg BID and advised to follow up with PCP for repeat BMP as well as compression stockings. Date of Encounter: 07/06/18 Time of Encounter: 08:15 - Discharge Diagnosis (1) Acute diastolic (congestive) heart failure Priority: Primary Status: Acute (2) Chronic venous stasis Priority: Secondary Status: Acute (3) Leukocytosis Priority: Secondary Status: Acute Qualifiers: Leukocytosis type: unspecified Qualified Code(s): D72.829 - Elevated white blood cell count, unspecified (4) Transaminitis Priority: Secondary Status: Acute (5) Tobacco abuse Priority: Secondary Status: Chronic (6) DVT prophylaxis Priority: Secondary Status: Acute Hospital course: Mr. Peacock is a 53 year old male with known diastolic heart failure who presented to the ED with LE swelling, likely due to a combination of mild diastolic heart failure and chronic venous insufficiency. He states that he was intolerant to oral Lasix. Diuresed well with IV lasix 40mg BID with symptomatic relief. Limited echo did not show any significant changes since 2017. Will be discharged home on PO bumex 1mg BID and advised to follow up with PCP for repeat BMP as well as compression stockings. Discharge discussed with: patient, nurse - Time Spent with Patient Total time spent providing and/or coordinating discharge services: Greater than 30 minutes - Discharge Medications Prescriptions: Bumetanide [Bumex] 1 mg PO BIDDIURETIC #60 tablet Home Medications: Dextroamphetamine/Amphetamine [Adderall 20 mg Tablet] 20 mg PO DAILY 07/05/18 [ History] Methadone Oral Concentrate [Methadone] 90 mg PO DAILY 07/05/18 [History] Bumetanide [Bumex] 1 mg PO BIDDIURETIC #60 tablet 07/06/18 [Rx] Allergies/Adverse Reactions: 3 Allergy/AdvReac Type Severity Reaction Status Date / Time codeine Allergy Itching Verified 07/05/18 11:07 Date of admission: 07/05/18 13:30 Primary care physician: PCP NONE - Constitutional Vitals: Temp Pulse Resp BP Pulse Ox 98.1 F 82 18 143/89 96 07/06/18 07:12 07/06/18 07:12 07/06/18 07:12 07/06/18 07:12 07/06/18 07:12 Exam: General: Alert and oriented, not in acute distress. HEENT:EOMI, pupils equal, round and reactive. Cardiovascular:Normal S1 & S2, No JVD. Pulse regular. Lungs: clear to auscultation, no wheezes/rales Abdomen:Soft, non-tender, no rigidity. Extremities: Bilateral LE swelling has significantly improved, skin changes consistent with chronic venous stasis. Slightly warm to touch but nontender, no fluctuance/localized swelling. - Patient Status Disposition: Home, Self-Care Condition: Fair Overall status at discharge: patient is progressing back to baseline - Discharge Instructions Instructions: Heart Failure (DC) Follow Up With: NONE,PCP [Primary Care Provider] - - Diet and Activity Activity: resume usual activities as tolerated Diet: low salt diet
--- NOTE | 2018-07-07 00:47 | Electrocardiograph Report ---
[place] [facility] Test Date: 2018-07-05 Pat Name: Suleiman Peacock Department: [id number] Room: 3B36 Gender: M Vehicle Trimmer: : [id number] Requested By: Miguelito Rogers Order Number: [id number] Reading MD: Martina Dorado Measurements Intervals [place] Rate: 104 P: 44 [place]: 154 QRS: 101 QRSD: 128 T: -10 QT: 359 QTc: 473 Interpretive Statements Sinus tachycardia Consider left atrial enlargement RBBB and LPFB Lateral infarct, acute Electronically Signed On 07-07-2018 0:44:50 EDT by Martina Dorado
== END 2018-07-06 12:00 | disposition home or self-care (01) ==
LOC: EMEROOARM 10:41 → 3BNU 10:41 → SUATTDRO 13:30 → 3BNU 14:40
PROVIDERS: ADMIT Internal Medicine; ATTEND Internal Medicine

== ENCOUNTER 2020-07-03 23:13 | Inpatient (IN) ==
[2020-07-03] MEDS ORDERED: 0.9 % Sodium Chloride 1,000 ML IVC ONE ×2 (23:35)
[2020-07-04 00:45] LABS: VBG HCO3 30 mEq/L (21-27); VBG PCO2 41 mmHg (41-51); VBG PH 7.47 pH Units (7.32-7.42); VBG PO2 74 mmHg (25-50)
[2020-07-04 00:57] LABS: Basophils # 0.1 K/mcL (0.0-0.2); Eosinophils # 0.1 K/mcL (0.0-0.6); Eosinophils % 1.1 %; Hematocrit 46.9 % (37.5-50.1); Hemoglobin 15.8 g/dL (12.9-16.9); Immature Granulocytes % 0.5 % (0-4); Lymphocytes # 1.6 K/mcL (0.6-4.6); Lymphocytes % 12.3 %; Mean Corpuscular HGB Conc 33.7 g/dL (31.6-35.5); Mean Corpuscular Hemoglobin 27.3 pg (28.0-33.3); Mean Corpuscular Volume 81.1 fL (83.0-100.0); Mean Platelet Volume 10.1 fL (9.4-12.4); Monocytes # 1.1 K/mcL (0.0-1.3); Monocytes % 8.4 %; Neutrophils # 10.1 K/mcL (1.6-8.9); Platelet Count 413 K/mcL (140-400); Red Blood Count 5.78 M/mcL (4.19-5.50); Red Cell Distribution Width 14.2 % (11.5-14.5); Segmented Neutrophils % 76.7 %; White Blood Count 13.2 K/mcL (4.3-11.1)
[2020-07-04 01:09] LABS: Bilirubin,Urine Negative (Negative); Blood,Urine Negative (Negative); Clarity,Urine Clear (Clear); Color,Urine Colorless (Yellow); Glucose,Urine (UA) >=1000 mg/dL (Normal); Ketones,Urine 40 mg/dL (Negative); Leukocyte Esterase,Urine Negative (Negative); Mucus,Urine Few per lpf (None-Few); Nitrite,Urine Negative (Negative); Protein,Urine Trace mg/dL (Neg-Trace); RBC,Urine 0-3 per hpf (0-3); Specific Gravity,Urine 1.027 (1.010-1.025); Urobilinogen,Urine Normal (Normal); WBC,Urine 0-3 per hpf (0-3)
[2020-07-04 01:30] LABS: Alanine Aminotransferase 169 Units/L (7-52); Albumin 4.5 g/dL (3.5-5.7); Albumin/Globulin Ratio 1.2 (1.1-2.2); Alkaline Phosphatase 163 Units/L (34-104); Aspartate Amino Transferase 90 Units/L (13-39); BUN/Creatinine Ratio 22 (6-26); Bilirubin,Direct 0.2 mg/dL (0.0-0.2); Bilirubin,Indirect 0.5 mg/dL (0.0-1.0); Bilirubin,Total 0.7 mg/dL (0.3-1.0); Blood Urea Nitrogen 28 mg/dL (6-20); Calcium 9.7 mg/dL (8.6-10.3); Carbon Dioxide 32 mEq/L (23-29); Chloride 80 mEq/L (98-107); Ethanol < 10 mg/dL (Less than 10); Globulin 3.8 g/dL (2.4-3.5); Glucose 525 mg/dL (70-105); Lipase 13 Units/L (11-82); Magnesium 2.2 mg/dL (1.6-2.6); Osmolality,Calculated 299 (280-300); Potassium 2.5 mEq/L (3.5-5.1); Sodium 130 mEq/L (136-145); Total Protein 8.3 g/dL (6.4-8.9); Troponin I < 0.03 ng/mL (< 0.04); eGFR For African Americans > 60 (> 60); eGFR For Non-African Americans 60 (> 60)
[2020-07-04] MEDS ORDERED: Potassium Chloride 40 MEQ, Lidocaine 1% 2 ML in 0.9 % Sodium Chloride 500 ML IVPB ONE ×2 (01:32→07:27)
[2020-07-04] MEDS ORDERED: Potassium Chloride Elixir 20 MEQ/15 ML UDC PO ONE (01:32)
[2020-07-04] MEDS ORDERED: 0.9 % Sodium Chloride 1,000 ML IVC SCH (02:00)
[2020-07-04 03:18] LABS: Hepatitis B Surface Antigen Nonreactive (Nonreactive)
[2020-07-04 03:47] LABS: Hepatitis B Core IgM Nonreactive (Nonreactive)
[2020-07-04 03:48] LABS: Hepatitis A Antibody IgM Nonreactive (Nonreactive)
[2020-07-04] MEDS ORDERED: Naloxone 0.4 MG/ML INJ IVP PRN (03:50)
[2020-07-04] MEDS ORDERED: *HR* Dextrose 50 % in Water (Vial) 50 ML VIAL IVP PRN ×3 (04:27→17:03)
[2020-07-04] MEDS ORDERED: Dextrose Gel 15 GM/37.5 ML TUBE PO PRN ×4 (04:27→17:03)
[2020-07-04] MEDS ORDERED: D5% in Water 1,000 ML IVC PRN ×2 (04:27→17:03)
[2020-07-04 04:29] LABS: Adenovirus Not Detected (Not Detect); Bordetella Pertussis Not Detected (Not Detect); Chlamydophila pneumoniae Not Detected (Not Detect); Coronavirus 229E Not Detected (Not Detect); Coronavirus HKU1 Not Detected (Not Detect); Coronavirus NL63 Not Detected (Not Detect); Coronavirus OC43 Not Detected (Not Detect); Human Metapneumovirus Not Detected (Not Detect); Human Rhinovirus/Enterovirus Not Detected (Not Detect); Influenza A Subtype 2009 H1 Not Detected (Not Detect); Influenza B Not Detected (Not Detect); Mycoplasma pneumoniae Not Detected (Not Detect); Parainfluenza Virus 1 Not Detected (Not Detect); Parainfluenza Virus 2 Not Detected (Not Detect); Parainfluenza Virus 3 Not Detected (Not Detect); Parainfluenza Virus 4 Not Detected (Not Detect); Respiratory Syncytial Virus Not Detected (Not Detect); SARS-CoV-2 Not Detected (Not Detect)
[2020-07-04 05:36] LABS: Hepatitis C Virus Antibody Reactive (Nonreactive)
[2020-07-04] MEDS ORDERED: Insulin LISPRO 300 UNITS/3 ML VIAL SQ SCH (06:00)
[2020-07-04 06:29] LABS: BUN/Creatinine Ratio 23 (6-26); Blood Urea Nitrogen 23 mg/dL (6-20); Calcium 8.7 mg/dL (8.6-10.3); Carbon Dioxide 32 mEq/L (23-29); Chloride 90 mEq/L (98-107); Glucose 383 mg/dL (70-105); Osmolality,Calculated 295 (280-300); Potassium 3.1 mEq/L (3.5-5.1); Sodium 133 mEq/L (136-145); eGFR For African Americans > 60 (> 60); eGFR For Non-African Americans > 60 (> 60)
[2020-07-04] MEDS: Nicotine 14 MG PATCH.TD24 TD SCH (08:23)
[2020-07-04 08:45] LABS: Estimated Average Glucose 280 mg/dl
[2020-07-04] MEDS: 0.9 % Sodium Chloride 1,000 ML IVC SCH ×3 (09:24→14:44)
[2020-07-04 09:42] LABS: VBG Base Excess 6 mEq/L; VBG Chloride 93 mEq/L (98-107); VBG Glucose 315 mg/dl (65-95); VBG HCO3 32 mEq/L (21-27); VBG Ionized Calcium 0.97 mmol/L (1.15-1.35); VBG Oxygen Saturation 100 %; VBG PCO2 52 mmHg (41-51); VBG PH 7.41 pH Units (7.32-7.42); VBG PO2 183 mmHg (25-50); VBG Total CO2 34 mEq/L
[2020-07-04 10:38] LABS: BUN/Creatinine Ratio 24 (6-26); Blood Urea Nitrogen 20 mg/dL (6-20); Calcium 8.4 mg/dL (8.6-10.3); Carbon Dioxide 31 mEq/L (23-29); Chloride 93 mEq/L (98-107); Glucose 319 mg/dL (70-105); Osmolality,Calculated 295 (280-300); Potassium 2.9 mEq/L (3.5-5.1); Sodium 135 mEq/L (136-145); eGFR For African Americans > 60 (> 60); eGFR For Non-African Americans > 60 (> 60)
[2020-07-04] MEDS ORDERED: levoFLOXacin 500 MG TABLET PO SCH (11:15)
[2020-07-04 11:32] LABS: BUN/Creatinine Ratio 25 (6-26); Blood Urea Nitrogen 19 mg/dL (6-20); C-Reactive Protein 36 mg/L (Less than 10); Calcium 7.7 mg/dL (8.6-10.3); Carbon Dioxide 32 mEq/L (23-29); Chloride 96 mEq/L (98-107); Glucose 295 mg/dL (70-105); Osmolality,Calculated 295 (280-300); Potassium 2.9 mEq/L (3.5-5.1); Sodium 136 mEq/L (136-145); eGFR For African Americans > 60 (> 60); eGFR For Non-African Americans > 60 (> 60)
[2020-07-04] MEDS ORDERED: Vancomycin 1,750 MG in 0.9 % Sodium Chloride 250 ML IVPB SCH (12:00)
[2020-07-04] MEDS ORDERED: Vancomycin 1,750 MG/517.5 ML IV.SOLN IVPB ONE (12:01)
[2020-07-04] MEDS: *HR* Heparin 5,000 UNIT/ML VIAL SQ SCH ×2 (14:44→20:16)
[2020-07-04 16:25] LABS: BUN/Creatinine Ratio 22 (6-26); Blood Urea Nitrogen 15 mg/dL (6-20); Calcium 7.5 mg/dL (8.6-10.3); Carbon Dioxide 33 mEq/L (23-29); Chloride 98 mEq/L (98-107); Glucose 250 mg/dL (70-105); Osmolality,Calculated 291 (280-300); Potassium 3.3 mEq/L (3.5-5.1); Sodium 136 mEq/L (136-145); eGFR For African Americans > 60 (> 60); eGFR For Non-African Americans > 60 (> 60)
[2020-07-04] MEDS ORDERED: Insulin Regular, Human 100 UNIT/ML IV PRN (16:49)
[2020-07-04] MEDS ORDERED: Insulin Human Regular 100 UNIT in 0.9 % Sodium Chloride 100 ML IVC SCH (17:00)
[2020-07-04] MEDS: Insulin LISPRO 300 UNITS/3 ML VIAL SQ SCH ×2 (17:38→20:04)
[2020-07-04] MEDS: Ondansetron ODT 4 MG TAB.RAPDIS SL PRN (20:11)
[2020-07-04 20:31] LABS: BUN/Creatinine Ratio 20 (6-26); Blood Urea Nitrogen 15 mg/dL (6-20); Carbon Dioxide 32 mEq/L (23-29); Chloride 95 mEq/L (98-107); Glucose 269 mg/dL (70-105); Osmolality,Calculated 288 (280-300); Potassium 3.3 mEq/L (3.5-5.1); Sodium 134 mEq/L (136-145); eGFR For African Americans > 60 (> 60); eGFR For Non-African Americans > 60 (> 60)
[2020-07-04] MEDS ORDERED: Insulin DETEMIR 100 UNIT/ML X5UNITS SQ SCH (21:00)
[2020-07-04] MEDS: Vancomycin 1,750 MG/517.5 ML IV.SOLN IVPB SCH (23:00)
[2020-07-04 23:42] LABS: BUN/Creatinine Ratio 18 (6-26); Blood Urea Nitrogen 13 mg/dL (6-20); Calcium 7.9 mg/dL (8.6-10.3); Carbon Dioxide 32 mEq/L (23-29); Chloride 95 mEq/L (98-107); Glucose 196 mg/dL (70-105); Osmolality,Calculated 284 (280-300); Potassium 3.3 mEq/L (3.5-5.1); Sodium 134 mEq/L (136-145); eGFR For African Americans > 60 (> 60); eGFR For Non-African Americans > 60 (> 60)
[2020-07-05] MEDS ORDERED: Potassium Chloride 40 MEQ, Lidocaine 1% 2 ML in 0.9 % Sodium Chloride 500 ML IVPB ONE (00:08)
[2020-07-05 04:53] LABS: Basophils # 0.1 K/mcL (0.0-0.2); Basophils % 0.4 %; Eosinophils # 0.6 K/mcL (0.0-0.6); Eosinophils % 3.7 %; Hematocrit 42.3 % (37.5-50.1); Immature Granulocytes % 0.4 % (0-4); Lymphocytes # 0.5 K/mcL (0.6-4.6); Mean Corpuscular HGB Conc 32.4 g/dL (31.6-35.5); Mean Corpuscular Hemoglobin 27.1 pg (28.0-33.3); Mean Corpuscular Volume 83.6 fL (83.0-100.0); Mean Platelet Volume 9.6 fL (9.4-12.4); Monocytes # 0.6 K/mcL (0.0-1.3); Monocytes % 3.6 %; Neutrophils # 14.5 K/mcL (1.6-8.9); Platelet Count 318 K/mcL (140-400); Red Blood Count 5.06 M/mcL (4.19-5.50); Red Cell Distribution Width 14.6 % (11.5-14.5); Segmented Neutrophils % 88.9 %; White Blood Count 16.3 K/mcL (4.3-11.1)
[2020-07-05 05:03] LABS: Hemoglobin 13.7 g/dL (12.9-16.9)
[2020-07-05 05:12] LABS: BUN/Creatinine Ratio 14 (6-26); Blood Urea Nitrogen 11 mg/dL (6-20); Calcium 7.8 mg/dL (8.6-10.3); Carbon Dioxide 29 mEq/L (23-29); Chloride 96 mEq/L (98-107); Glucose 222 mg/dL (70-105); Osmolality,Calculated 284 (280-300); Sodium 134 mEq/L (136-145); eGFR For African Americans > 60 (> 60); eGFR For Non-African Americans > 60 (> 60)
[2020-07-05] MEDS ORDERED: Insulin DETEMIR 100 UNIT/ML X5UNITS SQ SCH (05:30)
[2020-07-05] MEDS ORDERED: Insulin DETEMIR 100 UNIT/ML X5UNITS SQ ONE (05:45)
[2020-07-05] MEDS: Ondansetron ODT 4 MG TAB.RAPDIS SL PRN (05:47)
[2020-07-05 06:06] LABS: Bilirubin,Urine Negative (Negative); Blood,Urine Negative (Negative); Clarity,Urine Clear (Clear); Color,Urine Light-Yellow (Yellow); Glucose,Urine (UA) >=1000 mg/dL (Normal); Ketones,Urine 60 mg/dL (Negative); Leukocyte Esterase,Urine Negative (Negative); Mucus,Urine Few per lpf (None-Few); Nitrite,Urine Negative (Negative); Protein,Urine Trace mg/dL (Neg-Trace); RBC,Urine 0-3 per hpf (0-3); Squamous Epithelial Cell,Urine Few per hpf (None-Few); Urobilinogen,Urine Normal (Normal); WBC,Urine 0-3 per hpf (0-3)
[2020-07-05] MEDS: *HR* Heparin 5,000 UNIT/ML VIAL SQ SCH ×3 (06:08→20:56)
[2020-07-05] MEDS: 0.9 % Sodium Chloride 1,000 ML IVC SCH ×3 (06:09→08:28)
[2020-07-05] MEDS: Nicotine 14 MG PATCH.TD24 TD SCH (08:27)
[2020-07-05] MEDS: Insulin LISPRO 300 UNITS/3 ML VIAL SQ SCH ×4 (08:28→20:53)
[2020-07-05] MEDS ORDERED: levoFLOXacin 750 MG/150 ML 750 MG/150 ML BAG IVPB SCH (09:00)
[2020-07-05] MEDS ORDERED: Piperacillin/Tazobactam 3.375 GM in 0.9 % Sodium Chloride Mini Bag 100 ML IVPB SCH (10:00)
[2020-07-05] MEDS ORDERED: Furosemide 20 MG/2 ML VIAL IVP SCH (10:15)
[2020-07-05] MEDS: Furosemide 20 MG/2 ML VIAL IVP SCH (12:46)
[2020-07-05] MEDS: Vancomycin 1,750 MG/517.5 ML IV.SOLN IVPB SCH (12:46)
[2020-07-05 15:08] LABS: VBG HCO3 33 mEq/L (21-27); VBG PCO2 60 mmHg (41-51); VBG PH 7.35 pH Units (7.32-7.42); VBG PO2 172 mmHg (25-50)
[2020-07-05 15:24] LABS: Acetaminophen < 10 mcg/mL (10-20); Alanine Aminotransferase 93 Units/L (7-52); Albumin 3.2 g/dL (3.5-5.7); Albumin/Globulin Ratio 1.1 (1.1-2.2); Alkaline Phosphatase 102 Units/L (34-104); Aspartate Amino Transferase 47 Units/L (13-39); BUN/Creatinine Ratio 14 (6-26); Bilirubin,Direct 0.2 mg/dL (0.0-0.2); Bilirubin,Indirect 0.4 mg/dL (0.0-1.0); Bilirubin,Total 0.6 mg/dL (0.3-1.0); Blood Urea Nitrogen 13 mg/dL (6-20); Calcium 7.7 mg/dL (8.6-10.3); Carbon Dioxide 32 mEq/L (23-29); Chloride 95 mEq/L (98-107); Globulin 2.8 g/dL (2.4-3.5); Glucose 314 mg/dL (70-105); Osmolality,Calculated 286 (280-300); Potassium 3.1 mEq/L (3.5-5.1); Salicylate < 2.5 mg/dL (15.0-30.0); Sodium 132 mEq/L (136-145); eGFR For African Americans > 60 (> 60); eGFR For Non-African Americans > 60 (> 60)
[2020-07-05] MEDS ORDERED: Ipratropium/Albuterol Neb 3 ML IH PRN (15:28)
[2020-07-05 15:39] LABS: Amphetamine Screen,Urine Positive ng/mL (Cutoff=1000); Barbiturate Screen,Urine Negative ng/mL (Cutoff=200); Benzodiazepines Screen,Urine Negative ng/mL (Cutoff=200); Cannabinoid Screen,Urine Negative ng/mL (Cutoff = 50); Cocaine Screen,Urine Negative ng/mL (Cutoff= 300); Opiate Screen,Urine Positive ng/mL (Cutoff=300); Phencyclidine Screen,Urine Negative ng/mL (Cutoff=25)
[2020-07-05] MEDS: Insulin DETEMIR 100 UNIT/ML X5UNITS SQ SCH (20:52)
[2020-07-06] MEDS: *HR* Heparin 5,000 UNIT/ML VIAL SQ SCH ×3 (05:41→21:54)
[2020-07-06] MEDS ORDERED: levoFLOXacin 750 MG TABLET PO SCH (09:00)
[2020-07-06] MEDS: Insulin DETEMIR 100 UNIT/ML X5UNITS SQ SCH ×2 (09:25→21:51)
[2020-07-06] MEDS: Furosemide 20 MG/2 ML VIAL IVP SCH (09:25)
[2020-07-06] MEDS: Insulin LISPRO 300 UNITS/3 ML VIAL SQ SCH ×3 (09:25→17:10)
[2020-07-06] MEDS: Nicotine 14 MG PATCH.TD24 TD SCH (09:25)
[2020-07-06 10:09] LABS: BUN/Creatinine Ratio 16 (6-26); Blood Urea Nitrogen 14 mg/dL (6-20); Calcium 8.3 mg/dL (8.6-10.3); Carbon Dioxide 35 mEq/L (23-29); Chloride 95 mEq/L (98-107); Glucose 345 mg/dL (70-105); Osmolality,Calculated 294 (280-300); Potassium 3.1 mEq/L (3.5-5.1); Sodium 135 mEq/L (136-145); eGFR For African Americans > 60 (> 60); eGFR For Non-African Americans > 60 (> 60)
[2020-07-06 11:35] LABS: Basophils % 0.6 %; Eosinophils # 0.6 K/mcL (0.0-0.6); Eosinophils % 8.2 %; Hematocrit 42.1 % (37.5-50.1); Hemoglobin 13.5 g/dL (12.9-16.9); Immature Granulocytes % 0.9 % (0-4); Lymphocytes # 1.4 K/mcL (0.6-4.6); Mean Corpuscular HGB Conc 32.1 g/dL (31.6-35.5); Mean Corpuscular Hemoglobin 27.7 pg (28.0-33.3); Mean Corpuscular Volume 86.3 fL (83.0-100.0); Mean Platelet Volume 10.3 fL (9.4-12.4); Monocytes # 0.5 K/mcL (0.0-1.3); Monocytes % 7.6 %; Neutrophils # 4.3 K/mcL (1.6-8.9); Platelet Count 287 K/mcL (140-400); Red Blood Count 4.88 M/mcL (4.19-5.50); Red Cell Distribution Width 14.6 % (11.5-14.5); Segmented Neutrophils % 62.7 %; White Blood Count 6.8 K/mcL (4.3-11.1)
[2020-07-06] MEDS: Spironolactone 25 MG TABLET PO SCH ×2 (13:07→19:45)
[2020-07-06] MEDS: Vancomycin 1,750 MG/517.5 ML IV.SOLN IVPB SCH ×3 (13:07→23:44)
[2020-07-06 13:40] LABS: Bilirubin,Urine Negative (Negative); Blood,Urine Negative (Negative); Clarity,Urine Clear (Clear); Color,Urine Light-Yellow (Yellow); Glucose,Urine (UA) >=1000 mg/dL (Normal); Ketones,Urine Negative (Negative); Leukocyte Esterase,Urine Negative (Negative); Nitrite,Urine Negative (Negative); PH,Urine 6.5 pH Units (5.0-8.0); Protein,Urine Negative (Neg-Trace); RBC,Urine 0-3 per hpf (0-3); Urobilinogen,Urine Normal (Normal); WBC,Urine 0-3 per hpf (0-3)
[2020-07-06 13:41] LABS: Creatinine,Urine 72 mg/dL; Microalbumin,Urine < 7 mg/L; Protein/Creatinine Ratio,Urine 0.26 mg/mg (0.00-0.20)
[2020-07-06] MEDS ORDERED: D5% in Water 1,000 ML IVC PRN (15:52)
[2020-07-06] MEDS ORDERED: *HR* Dextrose 50 % in Water (Vial) 50 ML VIAL IVP PRN (15:52)
[2020-07-06] MEDS ORDERED: Dextrose Gel 15 GM/37.5 ML TUBE PO PRN ×2 (15:52)
[2020-07-06] MEDS: levoFLOXacin 750 MG/150 ML 750 MG/150 ML BAG IVPB SCH (19:42)
[2020-07-06] MEDS ORDERED: Insulin LISPRO 300 UNITS/3 ML VIAL SQ SCH (21:00)
[2020-07-07 05:05] LABS: Basophils # 0.1 K/mcL (0.0-0.2); Basophils % 0.9 %; Eosinophils # 0.5 K/mcL (0.0-0.6); Eosinophils % 6.9 %; Hematocrit 39.5 % (37.5-50.1); Hemoglobin 12.9 g/dL (12.9-16.9); Immature Granulocytes % 1.2 % (0-4); Lymphocytes # 1.4 K/mcL (0.6-4.6); Lymphocytes % 21.1 %; Mean Corpuscular HGB Conc 32.7 g/dL (31.6-35.5); Mean Corpuscular Volume 85.9 fL (83.0-100.0); Mean Platelet Volume 10.1 fL (9.4-12.4); Monocytes # 0.6 K/mcL (0.0-1.3); Monocytes % 8.3 %; Neutrophils # 4.1 K/mcL (1.6-8.9); Platelet Count 259 K/mcL (140-400); Red Cell Distribution Width 14.5 % (11.5-14.5); Segmented Neutrophils % 61.6 %; White Blood Count 6.6 K/mcL (4.3-11.1)
[2020-07-07 05:25] LABS: BUN/Creatinine Ratio 17 (6-26); Blood Urea Nitrogen 15 mg/dL (6-20); Calcium 8.5 mg/dL (8.6-10.3); Carbon Dioxide 33 mEq/L (23-29); Chloride 98 mEq/L (98-107); Glucose 258 mg/dL (70-105); Osmolality,Calculated 294 (280-300); Potassium 3.7 mEq/L (3.5-5.1); Sodium 137 mEq/L (136-145); eGFR For African Americans > 60 (> 60); eGFR For Non-African Americans > 60 (> 60)
[2020-07-07] MEDS: *HR* Heparin 5,000 UNIT/ML VIAL SQ SCH (05:30)
[2020-07-07] MEDS: Insulin LISPRO 300 UNITS/3 ML VIAL SQ SCH ×2 (08:22→12:53)
[2020-07-07] MEDS: Insulin DETEMIR 100 UNIT/ML X5UNITS SQ SCH (08:23)
[2020-07-07] MEDS: Nicotine 14 MG PATCH.TD24 TD SCH (08:32)
[2020-07-07] MEDS: Furosemide 20 MG/2 ML VIAL IVP SCH (08:32)
[2020-07-07] MEDS: Spironolactone 25 MG TABLET PO SCH (08:32)
[2020-07-07] MEDS: levoFLOXacin 750 MG/150 ML 750 MG/150 ML BAG IVPB SCH (08:36)
[2020-07-07 11:41] VITALS: BP 108/74
[2020-07-11 12:02] LABS: Urine Collection Volume NOT PROVIDED mL
== END 2020-07-07 13:18 | disposition home or self-care (01) | DRG 720 ==
LOC: EMEROOARM 23:13 → CDU 23:13 → SUATTDRO 07-04 04:49 → CDU 07-04 05:10 → 3BNU 07-04 19:30
PROVIDERS: ADMIT Internal Medicine; ATTEND Student in an Organized Health Care Education/Training Program

== ENCOUNTER 2020-12-23 00:11 | Observation (INO) ==
[2020-12-23 01:15] LABS: Basophils # 0.1 K/mcL (0.0-0.2); Basophils % 1.1 %; Eosinophils # 0.6 K/mcL (0.0-0.6); Eosinophils % 7.6 %; Hematocrit 41.6 % (37.5-50.1); Hemoglobin 13.8 g/dL (12.9-16.9); Immature Granulocytes % 0.6 % (0-4); Lymphocytes # 2.4 K/mcL (0.6-4.6); Lymphocytes % 28.8 %; Mean Corpuscular HGB Conc 33.2 g/dL (31.6-35.5); Mean Corpuscular Hemoglobin 27.7 pg (28.0-33.3); Mean Corpuscular Volume 83.5 fL (83.0-100.0); Monocytes # 1.1 K/mcL (0.0-1.3); Monocytes % 12.8 %; Neutrophils # 4.1 K/mcL (1.6-8.9); Platelet Count 271 K/mcL (140-400); Red Blood Count 4.98 M/mcL (4.19-5.50); Red Cell Distribution Width 14.3 % (11.5-14.5); Segmented Neutrophils % 49.1 %; White Blood Count 8.4 K/mcL (4.3-11.1)
[2020-12-23 01:39] LABS: BUN/Creatinine Ratio 16 (6-26); Blood Urea Nitrogen 16 mg/dL (6-20); Calcium 9.1 mg/dL (8.6-10.3); Carbon Dioxide 27 mEq/L (23-29); Chloride 107 mEq/L (98-107); Glucose 166 mg/dL (70-105); Osmolality,Calculated 297 (280-300); Potassium 4.1 mEq/L (3.5-5.1); Sodium 141 mEq/L (136-145); Troponin I < 0.03 ng/mL (< 0.04); eGFR For African Americans > 60 (> 60); eGFR For Non-African Americans > 60 (> 60)
[2020-12-23 02:54] LABS: Alanine Aminotransferase 43 Units/L (7-52); Albumin 4.1 g/dL (3.5-5.7); Albumin/Globulin Ratio 1.4 (1.1-2.2); Alkaline Phosphatase 89 Units/L (34-104); Aspartate Amino Transferase 24 Units/L (13-39); Bilirubin,Direct 0.1 mg/dL (0.0-0.2); Bilirubin,Indirect 0.3 mg/dL (0.0-1.0); Bilirubin,Total 0.4 mg/dL (0.3-1.0); Globulin 2.9 g/dL (2.4-3.5)
[2020-12-23] MEDS ORDERED: Isovue-370 500 ML BOTTLE IVP ONE (03:04)
[2020-12-23] MEDS ORDERED: Ondansetron 4 MG/2 ML VIAL IVP PRN (04:45)
[2020-12-23] MEDS ORDERED: Naloxone 0.4 MG/ML INJ IVP PRN (04:45)
[2020-12-23] MEDS ORDERED: Perflutren Lipid Microsphere 1.3 ML in 0.9 % Sodium Chloride 8.7 ML IVP PRN (05:49)
[2020-12-23] MEDS ORDERED: D5% in Water 1,000 ML IVC PRN (06:07)
[2020-12-23] MEDS ORDERED: *HR* Dextrose 50 % in Water (Vial) 50 ML VIAL IVP PRN (06:07)
[2020-12-23] MEDS ORDERED: Dextrose Gel 15 GM/37.5 ML TUBE PO PRN ×2 (06:07)
[2020-12-23 07:18] VITALS: BP 122/74
[2020-12-23] MEDS ORDERED: Insulin LISPRO 300 UNITS/3 ML VIAL SUBQ SCH (07:30)
[2020-12-23] MEDS ORDERED: Furosemide 40 MG/4 ML VIAL IVP SCH (09:00)
== END 2020-12-23 11:46 | disposition home or self-care (01) ==
LOC: EMEROOARM 00:11 → 3ANU 00:11
PROVIDERS: ADMIT Internal Medicine; ATTEND Internal Medicine

== ENCOUNTER 2022-03-15 19:28 | Inpatient (IN) ==
[2022-03-15] MEDS ORDERED: Iopamidol - 370 500 ML MLS IVP ONE (20:03)
[2022-03-15 20:34] LABS: Hematocrit 46.7 % (37.5-50.1); Hemoglobin 15.8 g/dL (12.9-16.9); Mean Corpuscular HGB Conc 33.8 g/dL (31.6-35.5); Mean Corpuscular Hemoglobin 30.4 pg (28.0-33.3); Mean Corpuscular Volume 89.8 fL (83.0-100.0); Mean Platelet Volume 9.7 fL (9.4-12.4); Platelet Count 222 K/mcL (140-400); Red Cell Distribution Width 12.8 % (11.5-14.5); White Blood Count 16.7 K/mcL (4.3-11.1)
[2022-03-15 20:42] LABS: INR 1.2; Prothrombin Time 13.9 Seconds (9.4-12.1)
[2022-03-15 20:44] LABS: Activated Partial Thrombo Time 26.7 Seconds (26.0-36.0)
[2022-03-15 20:54] LABS: BUN/Creatinine Ratio 14 (6-26); Blood Urea Nitrogen 33 mg/dL (6-20); Calcium 7.6 mg/dL (8.6-10.3); Carbon Dioxide 23 mEq/L (23-29); Chloride 103 mEq/L (98-107); Ethanol < 10 mg/dL (Less than 10); Glucose 211 mg/dL (70-105); Osmolality,Calculated 292 (280-300); Potassium 5.1 mEq/L (3.5-5.1); Sodium 134 mEq/L (136-145); eGFR For African Americans 34 (> 60); eGFR For Non-African Americans 28 (> 60)
[2022-03-15 20:58] LABS: Troponin I 2.01 ng/mL (< 0.04)
[2022-03-15 21:34] LABS: Amorphous Sediment,Urine Few per hpf (None-Few); Bilirubin,Urine Negative (Negative); Blood,Urine Large (Negative); Clarity,Urine Ex.Turbid (Clear); Color,Urine Orange (Yellow); Glucose,Urine (UA) 50 mg/dL (Normal); Hyaline Casts,Urine Moderate per lpf (None Seen); Ketones,Urine Negative (Negative); Leukocyte Esterase,Urine Trace (Negative); Mucus,Urine Many per lpf (None-Few); Nitrite,Urine Negative (Negative); Protein,Urine 200 mg/dL (Neg-Trace); Specific Gravity,Urine 1.026 (1.010-1.025); Urobilinogen,Urine Normal (Normal); WBC,Urine 30-50 per hpf (0-3)
[2022-03-15] MEDS ORDERED: 0.9 % Sodium Chloride 1,000 ML IVC ONE ×3 (21:37→23:07)
[2022-03-15 21:47] LABS: Amphetamine Screen,Urine Positive ng/mL (Cutoff=1000); Barbiturate Screen,Urine Negative ng/mL (Cutoff=200); Benzodiazepines Screen,Urine Negative ng/mL (Cutoff=200); Cannabinoid Screen,Urine Negative ng/mL (Cutoff = 50); Cocaine Screen,Urine Negative ng/mL (Cutoff= 300); Opiate Screen,Urine Negative ng/mL (Cutoff=300); Phencyclidine Screen,Urine Negative ng/mL (Cutoff=25)
[2022-03-15 22:37] LABS: Alanine Aminotransferase 818 Units/L (7-52); Albumin/Globulin Ratio 1.5 (1.1-2.2); Alkaline Phosphatase 89 Units/L (34-104); Aspartate Amino Transferase 1682 Units/L (13-39); Bilirubin,Direct 0.2 mg/dL (0.0-0.2); Bilirubin,Indirect 0.4 mg/dL (0.0-1.0); Bilirubin,Total 0.6 mg/dL (0.3-1.0); Creatine Kinase > 20000 Units/L (30-223); Globulin 2.7 g/dL (2.4-3.5); Total Protein 6.7 g/dL (6.4-8.9)
[2022-03-15] MEDS ORDERED: *HR* FentaNYL (PF) 100 MCG/2 ML VIAL IVP ONE (22:46)
[2022-03-15] MEDS ORDERED: Heparin 25,000UNIT/250ML 1/2NS 25,000 UNIT/250 ML IV.SOLN IVC SCH (23:45)
[2022-03-15] MEDS ORDERED: *HR* Heparin 5,000 UNIT/ML VIAL IVP ONE (23:51)
[2022-03-15] MEDS ORDERED: *HR* Heparin 5,000 UNIT/ML VIAL IVP PRN ×2 (23:51)
[2022-03-16] MEDS ORDERED: Ondansetron 4 MG/2 ML VIAL IVP PRN (00:01)
[2022-03-16] MEDS ORDERED: Naloxone 0.4 MG/ML INJ IVP PRN (00:01)
[2022-03-16] MEDS ORDERED: Perflutren Lipid Microsphere 1.3 ML in 0.9 % Sodium Chloride 8.7 ML IVP PRN (00:05)
[2022-03-16] MEDS ORDERED: Dextrose Gel 15 GM/37.5 ML TUBE PO PRN ×2 (00:06)
[2022-03-16] MEDS ORDERED: *HR* Dextrose 50 % in Water (Syg) 50 ML SYRINGE IVP PRN (00:06)
[2022-03-16] MEDS ORDERED: D5% in Water 1,000 ML IVC PRN (00:06)
[2022-03-16] MEDS ORDERED: *HR* HYDROmorphone (PF) 1 MG/ML SYRINGE IVP ONE ×2 (00:13→11:50)
[2022-03-16 01:02] LABS: Influenza A PCR Negative (Negative); Influenza B PCR Negative (Negative); Resp. Syncytial Virus PCR Negative (Negative); SARS-CoV-2 by PCR (In House) Negative (Negative)
[2022-03-16 01:18] LABS: Heparin anti-factor XA UFH < 0.04 IU/mL (0.30-0.70)
[2022-03-16 01:21] LABS: Activated Partial Thrombo Time 25.5 Seconds (26.0-36.0)
[2022-03-16] MEDS ORDERED: Calcium Gluconate 1gm/50mL 1 GM/50 ML BAG IVPB ONE (01:33)
[2022-03-16] MEDS: *HR* HYDROmorphone (PF) 1 MG/ML SYRINGE IVP PRN ×5 (02:45→20:51)
[2022-03-16] MEDS: 0.9 % Sodium Chloride 1,000 ML IVC SCH ×3 (03:10→16:24)
[2022-03-16 03:55] LABS: Basophils # 0.1 K/mcL (0.0-0.2); Basophils % 0.4 %; Eosinophils # 0.1 K/mcL (0.0-0.6); Eosinophils % 0.4 %; Hematocrit 49.4 % (37.5-50.1); Hemoglobin 16.3 g/dL (12.9-16.9); Immature Granulocytes % 0.4 % (0-4); Lymphocytes # 2.2 K/mcL (0.6-4.6); Lymphocytes % 13.6 %; Mean Corpuscular Hemoglobin 29.7 pg (28.0-33.3); Mean Platelet Volume 9.4 fL (9.4-12.4); Monocytes # 0.6 K/mcL (0.0-1.3); Monocytes % 3.9 %; Platelet Count 223 K/mcL (140-400); Red Blood Count 5.49 M/mcL (4.19-5.50); Red Cell Distribution Width 12.9 % (11.5-14.5); Segmented Neutrophils % 81.3 %
[2022-03-16 04:40] LABS: Estimated Average Glucose 131 mg/dl; Hemoglobin A1C 6.2 %
[2022-03-16 06:10] LABS: Thyroid Stimulating Hormone 1.129 mcIU/mL (0.340-5.600)
[2022-03-16 06:12] LABS: Albumin 3.6 g/dL (3.5-5.7); Albumin/Globulin Ratio 1.4 (1.1-2.2); Bilirubin,Direct 0.2 mg/dL (0.0-0.2); Bilirubin,Indirect 0.4 mg/dL (0.0-1.0); Bilirubin,Total 0.6 mg/dL (0.3-1.0); Calcium 7.5 mg/dL (8.6-10.3); Globulin 2.6 g/dL (2.4-3.5); Magnesium 2.1 mg/dL (1.6-2.6); Potassium 5.3 mEq/L (3.5-5.1); Total Protein 6.2 g/dL (6.4-8.9)
[2022-03-16] MEDS: Insulin LISPRO 300 UNITS/3 ML VIAL SUBQ SCH ×3 (08:45→21:10)
[2022-03-16] MEDS: levoFLOXacin 750 MG/150 ML 750 MG/150 ML BAG IVPB SCH (08:45)
[2022-03-16] MEDS ORDERED: *HR* HYDROmorphone 2 MG/ML SYRINGE IVP ONE (08:49)
[2022-03-16] MEDS ORDERED: cefTRIAXone 1,000 MG in 0.9 % Sodium Chloride 10 ML IVP SCH (09:00)
[2022-03-16 10:21] LABS: Adenovirus Not Detected (Not Detect); Bordetella Pertussis Not Detected (Not Detect); Chlamydophila pneumoniae Not Detected (Not Detect); Coronavirus 229E Not Detected (Not Detect); Coronavirus HKU1 Not Detected (Not Detect); Coronavirus NL63 Not Detected (Not Detect); Coronavirus OC43 Not Detected (Not Detect); Human Metapneumovirus Not Detected (Not Detect); Human Rhinovirus/Enterovirus Not Detected (Not Detect); Influenza A Subtype 2009 H1 Not Detected (Not Detect); Influenza B Not Detected (Not Detect); Mycoplasma pneumoniae Not Detected (Not Detect); Parainfluenza Virus 1 Not Detected (Not Detect); Parainfluenza Virus 2 Not Detected (Not Detect); Parainfluenza Virus 3 Not Detected (Not Detect); Parainfluenza Virus 4 Not Detected (Not Detect); Respiratory Syncytial Virus Not Detected (Not Detect); SARS-CoV-2 Not Detected (Not Detect)
[2022-03-16] MEDS ORDERED: *HR* LORazepam 2 MG/ML VIAL IVP ONE ×2 (11:50→23:58)
[2022-03-16 16:10] LABS: Sodium, Urine 42.6 mEq/L
[2022-03-16 17:38] LABS: Hepatitis B Surface Antigen Nonreactive (Nonreactive)
[2022-03-16 18:10] LABS: Hepatitis A Antibody IgM Nonreactive (Nonreactive)
[2022-03-16 18:11] LABS: Hepatitis B Core IgM Nonreactive (Nonreactive)
[2022-03-16 18:13] LABS: Hepatitis C Virus Antibody Reactive (Nonreactive)
[2022-03-17] MEDS: 0.9 % Sodium Chloride 1,000 ML IVC SCH ×2 (00:20→15:38)
[2022-03-17 02:07] LABS: Basophils # 0.1 K/mcL (0.0-0.2); Basophils % 0.5 %; Eosinophils # 0.3 K/mcL (0.0-0.6); Eosinophils % 2.2 %; Hematocrit 42.6 % (37.5-50.1); Hemoglobin 14.6 g/dL (12.9-16.9); Immature Granulocytes % 0.5 % (0-4); Lymphocytes # 1.2 K/mcL (0.6-4.6); Mean Corpuscular HGB Conc 34.3 g/dL (31.6-35.5); Mean Corpuscular Hemoglobin 29.6 pg (28.0-33.3); Mean Corpuscular Volume 86.4 fL (83.0-100.0); Mean Platelet Volume 9.6 fL (9.4-12.4); Monocytes # 0.9 K/mcL (0.0-1.3); Monocytes % 7.6 %; Neutrophils # 8.8 K/mcL (1.6-8.9); Platelet Count 155 K/mcL (140-400); Red Blood Count 4.93 M/mcL (4.19-5.50); Red Cell Distribution Width 12.9 % (11.5-14.5); Segmented Neutrophils % 78.2 %; White Blood Count 11.2 K/mcL (4.3-11.1)
[2022-03-17] MEDS: *HR* HYDROmorphone (PF) 1 MG/ML SYRINGE IVP PRN ×3 (02:17→15:43)
[2022-03-17 03:11] LABS: Alanine Aminotransferase 538 Units/L (7-52); Albumin 2.9 g/dL (3.5-5.7); Albumin/Globulin Ratio 1.3 (1.1-2.2); Alkaline Phosphatase 73 Units/L (34-104); Aspartate Amino Transferase 764 Units/L (13-39); Bilirubin,Direct 0.2 mg/dL (0.0-0.2); Bilirubin,Indirect 0.5 mg/dL (0.0-1.0); Bilirubin,Total 0.7 mg/dL (0.3-1.0); Globulin 2.2 g/dL (2.4-3.5); Total Protein 5.1 g/dL (6.4-8.9)
[2022-03-17] MEDS: Insulin LISPRO 300 UNITS/3 ML VIAL SUBQ SCH ×3 (08:13→17:18)
[2022-03-17] MEDS ORDERED: Acetaminophen IV 1,000 MG/100 ML BAG IVPB SCH (09:48)
[2022-03-17 10:21] LABS: BUN/Creatinine Ratio 11 (6-26); Blood Urea Nitrogen 47 mg/dL (6-20); Calcium 7.1 mg/dL (8.6-10.3); Carbon Dioxide 14 mEq/L (23-29); Chloride 106 mEq/L (98-107); Creatine Kinase > 20000 Units/L (30-223); Glucose 152 mg/dL (70-105); Osmolality,Calculated 289 (280-300); Potassium 5.2 mEq/L (3.5-5.1); Sodium 132 mEq/L (136-145); eGFR For African Americans 17 (> 60); eGFR For Non-African Americans 14 (> 60)
[2022-03-17] MEDS ORDERED: Acetaminophen IV 1,000 MG/100 ML BAG IVPB ONE (10:48)
[2022-03-17] MEDS ORDERED: 0.9 % Sodium Chloride 250 ML IVC PRN (13:01)
[2022-03-17] MEDS ORDERED: *HR* Heparin 10,000 UNIT/10 ML VIAL IV PRN (13:01)
[2022-03-17] MEDS ORDERED: 0.9 % Sodium Chloride 2,000 ML PRIME SCH (13:15)
[2022-03-17] MEDS: *HR* HYDROcodone/Acet 5/325 mg TABLET PO PRN (13:36)
[2022-03-17] MEDS: Nicotine 21 MG PATCH.TD24 TD SCH (15:37)
[2022-03-17] MEDS: *HR* OxyCODONE Immed Rel 5 MG TABLET PO PRN (20:32)
[2022-03-18] MEDS: *HR* HYDROmorphone (PF) 1 MG/ML SYRINGE IVP PRN ×4 (00:53→22:47)
[2022-03-18] MEDS: *HR* OxyCODONE Immed Rel 5 MG TABLET PO PRN ×2 (04:47→14:14)
[2022-03-18] MEDS: levoFLOXacin 750 MG/150 ML 750 MG/150 ML BAG IVPB SCH (06:14)
[2022-03-18] MEDS: 0.9 % Sodium Chloride 1,000 ML IVC SCH ×6 (07:01→20:34)
[2022-03-18] MEDS: Nicotine 21 MG PATCH.TD24 TD SCH (07:48)
[2022-03-18] MEDS: Insulin LISPRO 300 UNITS/3 ML VIAL SUBQ SCH ×3 (08:05→17:51)
[2022-03-18 08:36] LABS: Basophils % 0.8 %
[2022-03-18 08:38] LABS: Basophils # 0.1 K/mcL (0.0-0.2); Eosinophils # 0.5 K/mcL (0.0-0.6); Eosinophils % 5.7 %; Hematocrit 38.5 % (37.5-50.1); Hemoglobin 13.4 g/dL (12.9-16.9); Immature Granulocytes % 0.3 % (0-4); Immature Platelets 3.4 % (1.1-6.1); Lymphocytes % 11.3 %; Mean Corpuscular HGB Conc 34.8 g/dL (31.6-35.5); Mean Corpuscular Hemoglobin 29.8 pg (28.0-33.3); Mean Corpuscular Volume 85.7 fL (83.0-100.0); Mean Platelet Volume 9.6 fL (9.4-12.4); Monocytes # 0.7 K/mcL (0.0-1.3); Neutrophils # 6.7 K/mcL (1.6-8.9); Platelet Count 128 K/mcL (140-400); Red Blood Count 4.49 M/mcL (4.19-5.50); Segmented Neutrophils % 73.9 %; White Blood Count 9.1 K/mcL (4.3-11.1)
[2022-03-18] MEDS ORDERED: 0.9 % Sodium Chloride 250 ML IVC PRN (08:38)
[2022-03-18] MEDS ORDERED: *HR* Heparin 10,000 UNIT/10 ML VIAL IV PRN (08:38)
[2022-03-18 09:06] LABS: Calcium 7.7 mg/dL (8.6-10.3); Potassium 4.4 mEq/L (3.5-5.1)
[2022-03-18 09:55] LABS: Magnesium 1.9 mg/dL (1.6-2.6); Phosphorous 4.4 mg/dL (2.7-4.5)
[2022-03-18 15:10] LABS: Albumin 2.8 g/dL (3.5-5.7); Albumin/Globulin Ratio 1.2 (1.1-2.2); Bilirubin,Direct 0.1 mg/dL (0.0-0.2); Bilirubin,Indirect 0.5 mg/dL (0.0-1.0); Bilirubin,Total 0.6 mg/dL (0.3-1.0); Globulin 2.3 g/dL (2.4-3.5); Total Protein 5.1 g/dL (6.4-8.9)
[2022-03-18] MEDS: *HR* HYDROcodone/Acet 5/325 mg TABLET PO PRN (20:34)
[2022-03-19] MEDS ORDERED: *HR* LORazepam 2 MG/ML VIAL IVP ONE (00:56)
[2022-03-19] MEDS: 0.9 % Sodium Chloride 1,000 ML IVC SCH ×3 (03:46→16:06)
[2022-03-19] MEDS: *HR* OxyCODONE Immed Rel 5 MG TABLET PO PRN ×2 (05:32→22:15)
[2022-03-19 06:17] LABS: Basophils # 0.1 K/mcL (0.0-0.2); Basophils % 0.7 %; Eosinophils # 0.6 K/mcL (0.0-0.6); Eosinophils % 7.6 %; Hematocrit 38.3 % (37.5-50.1); Hemoglobin 12.8 g/dL (12.9-16.9); Immature Granulocytes % 0.4 % (0-4); Lymphocytes % 13.5 %; Mean Corpuscular HGB Conc 33.4 g/dL (31.6-35.5); Mean Corpuscular Hemoglobin 29.6 pg (28.0-33.3); Mean Corpuscular Volume 88.7 fL (83.0-100.0); Monocytes # 0.7 K/mcL (0.0-1.3); Monocytes % 8.9 %; Neutrophils # 5.3 K/mcL (1.6-8.9); Platelet Count 129 K/mcL (140-400); Red Blood Count 4.32 M/mcL (4.19-5.50); Segmented Neutrophils % 68.9 %; White Blood Count 7.6 K/mcL (4.3-11.1)
[2022-03-19 07:46] LABS: BUN/Creatinine Ratio 6 (6-26); Blood Urea Nitrogen 34 mg/dL (6-20); Calcium 7.7 mg/dL (8.6-10.3); Carbon Dioxide 23 mEq/L (23-29); Chloride 109 mEq/L (98-107); Glucose 175 mg/dL (70-105); Osmolality,Calculated 300 (280-300); Potassium 4.2 mEq/L (3.5-5.1); Sodium 139 mEq/L (136-145); eGFR For African Americans 14 (> 60); eGFR For Non-African Americans 11 (> 60)
[2022-03-19] MEDS ORDERED: 0.9 % Sodium Chloride 250 ML IVC PRN (09:54)
[2022-03-19] MEDS ORDERED: *HR* Heparin 10,000 UNIT/10 ML VIAL IV PRN (09:54)
[2022-03-19] MEDS: Insulin LISPRO 300 UNITS/3 ML VIAL SUBQ SCH ×3 (10:05→17:20)
[2022-03-19] MEDS: Nicotine 21 MG PATCH.TD24 TD SCH (10:06)
[2022-03-19 12:35] LABS: Creatine Kinase > 20000 Units/L (30-223)
[2022-03-19] MEDS: *HR* HYDROmorphone (PF) 1 MG/ML SYRINGE IVP PRN ×2 (13:57→19:41)
[2022-03-19] MEDS: *HR* HYDROcodone/Acet 5/325 mg TABLET PO PRN (18:12)
[2022-03-20] MEDS: *HR* HYDROmorphone (PF) 1 MG/ML SYRINGE IVP PRN ×4 (01:09→21:10)
[2022-03-20] MEDS ORDERED: *HR* LORazepam 2 MG/ML VIAL IVP ONE ×2 (02:41→10:27)
[2022-03-20] MEDS: 0.9 % Sodium Chloride 1,000 ML IVC SCH (02:56)
[2022-03-20 03:10] LABS: Basophils # 0.1 K/mcL (0.0-0.2); Basophils % 0.8 %; Eosinophils # 0.8 K/mcL (0.0-0.6); Hematocrit 40.7 % (37.5-50.1); Hemoglobin 13.7 g/dL (12.9-16.9); Immature Granulocytes % 0.8 % (0-4); Lymphocytes # 1.4 K/mcL (0.6-4.6); Lymphocytes % 17.1 %; Mean Corpuscular HGB Conc 33.7 g/dL (31.6-35.5); Mean Corpuscular Hemoglobin 29.7 pg (28.0-33.3); Mean Corpuscular Volume 88.1 fL (83.0-100.0); Mean Platelet Volume 9.9 fL (9.4-12.4); Monocytes # 0.8 K/mcL (0.0-1.3); Neutrophils # 5.3 K/mcL (1.6-8.9); Platelet Count 142 K/mcL (140-400); Red Blood Count 4.62 M/mcL (4.19-5.50); Red Cell Distribution Width 13.2 % (11.5-14.5); Segmented Neutrophils % 63.3 %; White Blood Count 8.4 K/mcL (4.3-11.1)
[2022-03-20 03:51] LABS: Blood Urea Nitrogen 29 mg/dL (6-20); Carbon Dioxide 26 mEq/L (23-29); Chloride 104 mEq/L (98-107); Potassium 4.3 mEq/L (3.5-5.1); Sodium 136 mEq/L (136-145)
[2022-03-20 03:52] LABS: BUN/Creatinine Ratio 6 (6-26); Creatine Kinase > 20000 Units/L (30-223); Glucose 163 mg/dL (70-105); Osmolality,Calculated 291 (280-300); eGFR For African Americans 15 (> 60); eGFR For Non-African Americans 13 (> 60)
[2022-03-20] MEDS: *HR* OxyCODONE Immed Rel 5 MG TABLET PO PRN ×2 (05:25→19:26)
[2022-03-20] MEDS ORDERED: 0.9 % Sodium Chloride 250 ML IVC PRN (07:39)
[2022-03-20] MEDS: polyethylene glycoL 3350 17 GM POWD.PACK PO PRN (07:55)
[2022-03-20] MEDS: Nicotine 21 MG PATCH.TD24 TD SCH (07:55)
[2022-03-20] MEDS: Insulin LISPRO 300 UNITS/3 ML VIAL SUBQ SCH ×3 (07:57→16:55)
[2022-03-20] MEDS: *HR* HYDROcodone/Acet 5/325 mg TABLET PO PRN (10:54)
[2022-03-20] MEDS ORDERED: *HR* Heparin 5,000 UNIT/ML VIAL IVP ONE (12:12)
[2022-03-20] MEDS ORDERED: *HR* Heparin 5,000 UNIT/ML VIAL IVP PRN (12:12)
[2022-03-20 16:07] LABS: Hematocrit 43.9 % (37.5-50.1); Mean Corpuscular HGB Conc 34.2 g/dL (31.6-35.5); Mean Corpuscular Hemoglobin 29.6 pg (28.0-33.3); Mean Corpuscular Volume 86.8 fL (83.0-100.0); Mean Platelet Volume 9.9 fL (9.4-12.4); Platelet Count 133 K/mcL (140-400); Red Blood Count 5.06 M/mcL (4.19-5.50); Red Cell Distribution Width 13.3 % (11.5-14.5); White Blood Count 10.3 K/mcL (4.3-11.1)
[2022-03-20 16:16] LABS: Prothrombin Time 10.9 Seconds (9.4-12.1)
[2022-03-20 16:17] LABS: Heparin anti-factor XA UFH < 0.04 IU/mL (0.30-0.70)
[2022-03-20] MEDS: Heparin 25,000UNIT/250ML 1/2NS 25,000 UNIT/250 ML IV.SOLN IVC SCH (16:55)
[2022-03-21] MEDS: *HR* HYDROcodone/Acet 5/325 mg TABLET PO PRN ×2 (00:31→18:17)
[2022-03-21 01:33] LABS: Basophils # 0.1 K/mcL (0.0-0.2); Basophils % 1.3 %; Eosinophils # 0.8 K/mcL (0.0-0.6); Eosinophils % 8.6 %; Immature Granulocytes % 2.2 % (0-4); Lymphocytes # 1.9 K/mcL (0.6-4.6); Lymphocytes % 19.7 %; Mean Corpuscular HGB Conc 33.3 g/dL (31.6-35.5); Mean Corpuscular Hemoglobin 29.5 pg (28.0-33.3); Mean Corpuscular Volume 88.4 fL (83.0-100.0); Mean Platelet Volume 9.8 fL (9.4-12.4); Monocytes # 1.1 K/mcL (0.0-1.3); Monocytes % 11.2 %; Neutrophils # 5.5 K/mcL (1.6-8.9); Platelet Count 141 K/mcL (140-400); Red Blood Count 4.75 M/mcL (4.19-5.50); Red Cell Distribution Width 13.4 % (11.5-14.5); White Blood Count 9.6 K/mcL (4.3-11.1)
[2022-03-21 01:52] LABS: Calcium 8.3 mg/dL (8.6-10.3); Potassium 4.5 mEq/L (3.5-5.1)
[2022-03-21] MEDS: *HR* OxyCODONE Immed Rel 5 MG TABLET PO PRN ×2 (02:19→20:39)
[2022-03-21] MEDS: *HR* Heparin 5,000 UNIT/ML VIAL IVP PRN (04:36)
[2022-03-21] MEDS: *HR* HYDROmorphone (PF) 1 MG/ML SYRINGE IVP PRN ×4 (04:43→22:04)
[2022-03-21] MEDS: Insulin LISPRO 300 UNITS/3 ML VIAL SUBQ SCH ×3 (07:32→18:17)
[2022-03-21] MEDS: Nicotine 21 MG PATCH.TD24 TD SCH (07:32)
[2022-03-21] MEDS: Heparin 25,000UNIT/250ML 1/2NS 25,000 UNIT/250 ML IV.SOLN IVC SCH ×2 (07:33→22:40)
[2022-03-21] MEDS: polyethylene glycoL 3350 17 GM POWD.PACK PO PRN (15:17)
[2022-03-22] MEDS: *HR* HYDROcodone/Acet 5/325 mg TABLET PO PRN ×3 (00:41→19:56)
[2022-03-22] MEDS: *HR* OxyCODONE Immed Rel 5 MG TABLET PO PRN ×4 (02:37→23:45)
[2022-03-22] MEDS: *HR* HYDROmorphone (PF) 1 MG/ML SYRINGE IVP PRN ×3 (04:26→21:44)
[2022-03-22 04:48] LABS: Basophils # 0.1 K/mcL (0.0-0.2); Basophils % 0.5 %; Eosinophils # 0.9 K/mcL (0.0-0.6); Eosinophils % 8.5 %; Hematocrit 37.2 % (37.5-50.1); Hemoglobin 12.5 g/dL (12.9-16.9); Immature Granulocytes % 2.3 % (0-4); Lymphocytes # 1.6 K/mcL (0.6-4.6); Lymphocytes % 15.5 %; Mean Corpuscular HGB Conc 33.6 g/dL (31.6-35.5); Mean Corpuscular Hemoglobin 29.3 pg (28.0-33.3); Mean Corpuscular Volume 87.3 fL (83.0-100.0); Mean Platelet Volume 9.7 fL (9.4-12.4); Monocytes # 1.2 K/mcL (0.0-1.3); Monocytes % 11.9 %; Neutrophils # 6.3 K/mcL (1.6-8.9); Platelet Count 139 K/mcL (140-400); Red Blood Count 4.26 M/mcL (4.19-5.50); Red Cell Distribution Width 13.4 % (11.5-14.5); Segmented Neutrophils % 61.3 %; White Blood Count 10.3 K/mcL (4.3-11.1)
[2022-03-22 05:17] LABS: Calcium 8.2 mg/dL (8.6-10.3); Potassium 4.7 mEq/L (3.5-5.1)
[2022-03-22 05:29] LABS: Platelet Estimate Normal (Normal)
[2022-03-22] MEDS ORDERED: 0.9 % Sodium Chloride 250 ML IVC PRN (07:15)
[2022-03-22] MEDS: Insulin LISPRO 300 UNITS/3 ML VIAL SUBQ SCH ×2 (08:12→15:36)
[2022-03-22] MEDS: Nicotine 21 MG PATCH.TD24 TD SCH (08:46)
[2022-03-22] MEDS: Heparin 25,000UNIT/250ML 1/2NS 25,000 UNIT/250 ML IV.SOLN IVC SCH (15:29)
[2022-03-22] MEDS: cefTRIAXone 1,000 MG in 0.9 % Sodium Chloride 10 ML IVP SCH (15:36)
[2022-03-22 16:21] LABS: HCV Quant Log NOT DETECTED log IU/mL
[2022-03-22] MEDS: polyethylene glycoL 3350 17 GM POWD.PACK PO PRN (18:08)
[2022-03-22] MEDS: Doxycycline 100 MG CAPSULE PO SCH (19:57)
[2022-03-22] MEDS ORDERED: *HR* LORazepam 2 MG/ML VIAL IVP ONE (23:36)
[2022-03-23] MEDS: *HR* HYDROmorphone (PF) 1 MG/ML SYRINGE IVP PRN ×3 (03:47→23:02)
[2022-03-23 04:22] LABS: Basophils # 0.1 K/mcL (0.0-0.2); Basophils % 1.2 %; Eosinophils # 0.9 K/mcL (0.0-0.6); Eosinophils % 8.3 %; Hematocrit 35.8 % (37.5-50.1); Immature Granulocytes % 3.6 % (0-4); Lymphocytes # 1.7 K/mcL (0.6-4.6); Lymphocytes % 16.7 %; Mean Corpuscular HGB Conc 33.5 g/dL (31.6-35.5); Mean Corpuscular Hemoglobin 29.6 pg (28.0-33.3); Mean Corpuscular Volume 88.2 fL (83.0-100.0); Mean Platelet Volume 9.6 fL (9.4-12.4); Monocytes # 1.3 K/mcL (0.0-1.3); Monocytes % 12.4 %; Platelet Count 157 K/mcL (140-400); Red Blood Count 4.06 M/mcL (4.19-5.50); Red Cell Distribution Width 13.4 % (11.5-14.5); Segmented Neutrophils % 57.8 %; White Blood Count 10.4 K/mcL (4.3-11.1)
[2022-03-23 04:45] LABS: Calcium 8.1 mg/dL (8.6-10.3); Potassium 4.4 mEq/L (3.5-5.1)
[2022-03-23] MEDS: *HR* OxyCODONE Immed Rel 5 MG TABLET PO PRN ×2 (05:55→16:30)
[2022-03-23] MEDS: Heparin 25,000UNIT/250ML 1/2NS 25,000 UNIT/250 ML IV.SOLN IVC SCH ×2 (05:56→17:17)
[2022-03-23] MEDS ORDERED: 0.9 % Sodium Chloride 250 ML IVC PRN (07:22)
[2022-03-23] MEDS ORDERED: *HR* Heparin 10,000 UNIT/10 ML VIAL IV PRN (07:46)
[2022-03-23] MEDS: *HR* HYDROcodone/Acet 5/325 mg TABLET PO PRN (08:43)
[2022-03-23] MEDS: Doxycycline 100 MG CAPSULE PO SCH ×2 (08:43→19:56)
[2022-03-23] MEDS: Nicotine 21 MG PATCH.TD24 TD SCH (08:44)
[2022-03-23] MEDS: cefTRIAXone 1,000 MG in 0.9 % Sodium Chloride 10 ML IVP SCH (08:44)
[2022-03-23] MEDS: Insulin LISPRO 300 UNITS/3 ML VIAL SUBQ SCH ×3 (08:45→18:37)
[2022-03-23 09:46] LABS: HCV Quant Interpretation NOT DETECTED (Not Detected)
[2022-03-23] MEDS: Sennosides/Docusate Sodium TABLET PO SCH ×2 (10:24→19:56)
[2022-03-23] MEDS: Morphine Sulfate ER (12 HR) 15 MG TABLET.ER PO SCH ×2 (12:09→19:56)
[2022-03-23] MEDS ORDERED: Heparin 1,000 UNITS/500 mL 500 ML ONE (12:37)
[2022-03-23] MEDS ORDERED: *HR* Heparin 5,000 UNIT/ML VIAL ONE (13:20)
[2022-03-23] MEDS: carvediloL 6.25 MG TABLET PO SCH (18:37)
[2022-03-24] MEDS: *HR* OxyCODONE Immed Rel 5 MG TABLET PO PRN ×2 (02:45→13:45)
[2022-03-24 04:40] LABS: Basophils # 0.1 K/mcL (0.0-0.2); Basophils % 1.1 %; Eosinophils # 0.9 K/mcL (0.0-0.6); Eosinophils % 8.4 %; Hematocrit 37.7 % (37.5-50.1); Hemoglobin 12.3 g/dL (12.9-16.9); Immature Granulocytes % 4.2 % (0-4); Lymphocytes # 1.6 K/mcL (0.6-4.6); Lymphocytes % 15.2 %; Mean Corpuscular HGB Conc 32.6 g/dL (31.6-35.5); Mean Corpuscular Hemoglobin 29.5 pg (28.0-33.3); Mean Corpuscular Volume 90.4 fL (83.0-100.0); Mean Platelet Volume 9.6 fL (9.4-12.4); Monocytes # 1.4 K/mcL (0.0-1.3); Monocytes % 13.3 %; Neutrophils # 6.2 K/mcL (1.6-8.9); Platelet Count 170 K/mcL (140-400); Red Blood Count 4.17 M/mcL (4.19-5.50); Segmented Neutrophils % 57.8 %; White Blood Count 10.8 K/mcL (4.3-11.1)
[2022-03-24 05:12] LABS: Calcium 8.2 mg/dL (8.6-10.3); Potassium 4.4 mEq/L (3.5-5.1)
[2022-03-24] MEDS: *HR* HYDROcodone/Acet 5/325 mg TABLET PO PRN (05:12)
[2022-03-24] MEDS: *HR* Heparin 5,000 UNIT/ML VIAL IVP PRN (05:12)
[2022-03-24] MEDS: Nicotine 21 MG PATCH.TD24 TD SCH (08:40)
[2022-03-24] MEDS: Heparin 25,000UNIT/250ML 1/2NS 25,000 UNIT/250 ML IV.SOLN IVC SCH ×2 (08:41→14:04)
[2022-03-24] MEDS: Doxycycline 100 MG CAPSULE PO SCH (08:42)
[2022-03-24] MEDS: cefTRIAXone 1,000 MG in 0.9 % Sodium Chloride 10 ML IVP SCH (08:42)
[2022-03-24] MEDS: carvediloL 6.25 MG TABLET PO SCH (08:42)
[2022-03-24] MEDS: Insulin LISPRO 300 UNITS/3 ML VIAL SUBQ SCH ×2 (08:42→11:42)
[2022-03-24] MEDS: Sennosides/Docusate Sodium TABLET PO SCH (08:42)
[2022-03-24] MEDS: Morphine Sulfate ER (12 HR) 15 MG TABLET.ER PO SCH (08:42)
[2022-03-24] MEDS: *HR* HYDROmorphone (PF) 1 MG/ML SYRINGE IVP PRN (10:37)
[2022-03-24 10:46] VITALS: BP 157/82; PULSE 91; TEMP 98.1; O2SAT 97
[2022-03-24] MEDS ORDERED: Apixaban 5 MG TABLET PO ONE (15:51)
[2022-03-24] MEDS ORDERED: carvediloL 6.25 MG TABLET PO SCH (17:00)
[2022-03-24] MEDS ORDERED: Apixaban 5 MG TABLET PO SCH (21:00)
== END 2022-03-24 17:11 | disposition home or self-care (01) | DRG 720 ==
LOC: EMEROOARM 19:28 → 2NNU 19:28 → SUATTDRO 03-16 00:19 → 2NNU 03-16 01:20 → 2ANU 03-24 11:15
PROVIDERS: ADMIT Internal Medicine; ATTEND Family Medicine
PROC: IRPERMA (2022-03-23 10:00)